=== PATIENT | male | born 1945 | race Caucasian/White ===

== ENCOUNTER 2017-06-25 09:43 | Emergency (ER) | payer MEDICARE, OTHER | END 2017-06-25 12:28 | disposition home or self-care (01) | LOC: E/R 09:43 | DX: R55 Syncope and collapse (principal); R53.1 Weakness; J44.9 Chronic obstructive pulmonary disease, unspecified; I10 Essential (primary) hypertension; G20 Parkinson's disease; F17.210 Nicotine dependence, cigarettes, uncomplicated; Z79.82 Long term (current) use of aspirin | CPT/HCPCS: 82962; 93005; 99283-25 ==

== ENCOUNTER 2017-06-27 00:18 | Emergency (ER) | payer MEDICARE, OTHER ==
[2017-06-27 01:40] LABS: ADD MAN DIFF? NO
[2017-06-27 01:41] LABS: WHITE BLOOD COUNT 5.1 10^3/ul (4.8-10.8)
[2017-06-27 01:41] LABS: BASOPHILS % 0.6 % (0.0-2.0); EOSINOPHILS # 0.2 10^3/ul (0.0-0.5); EOSINOPHILS % 4.7 % (0.0-7.0); HEMATOCRIT 39.1 % (42.0-52.0); HEMOGLOBIN 13.3 g/dl (14.0-18.0); LYMPHOCYTES # 2.2 10^3/ul (0.8-2.9); LYMPHOCYTES % 43.3 % (15.0-51.0); MEAN CORPUSCULAR HEMOGLOBIN 31.7 pg (29.0-33.0); MEAN CORPUSCULAR VOLUME 93.1 fl (82.0-101.0); MEAN PLATELET VOLUME 10.9 fl (7.4-10.4); MONOCYTE # 0.5 10^3/ul (0.3-0.9); MONOCYTES % 10.3 % (0.0-11.0); NEUTROPHIL # 2.1 10^3/ul (1.6-7.5); NEUTROPHILS % 40.7 % (39.0-77.0); PLATELET COUNT 183 10^3/UL (140-415); RED CELL DISTRIBUTION WIDTH 12.4 % (11.5-14.5)
[2017-06-27 01:59] LABS: ANION GAP 18 (8-16); BLOOD UREA NITROGEN 11 mg/dl (7-20); CARBON DIOXIDE 24 mmol/L (21-31); CHLORIDE 105 mmol/L (97-110); CREATININE 0.94 mg/dl (0.61-1.24); GLUCOSE 119 mg/dl (70-220); POTASSIUM 4.3 mmol/L (3.5-5.1); SODIUM 143 mmol/L (135-144)
[2017-06-27 02:27] LABS: TROPONIN-I < 0.012 ng/ml (0.00-0.12)
[2017-06-27 05:00] LABS: TROPONIN-I < 0.012 ng/ml (0.00-0.12)
== END 2017-06-27 08:46 | disposition home or self-care (01) ==
LOC: E/R 00:18
DX: R07.9 Chest pain, unspecified (principal); G20 Parkinson's disease; J44.9 Chronic obstructive pulmonary disease, unspecified; I10 Essential (primary) hypertension; Z79.82 Long term (current) use of aspirin; Z87.891 Personal history of nicotine dependence
CPT/HCPCS: 36415; 71045; 80048; 84484; 85025; 93005; 99285-25

== ENCOUNTER 2017-07-08 06:29 | Emergency (ER) | payer MEDICARE, OTHER ==
[2017-07-08] MEDS: MECLIZINE 12.5 MG TAB PO (10:41)
[2017-07-08] MEDS: ONDANSETRON 4 MG INJ IV (10:41)
[2017-07-08] MEDS: SOD CHLORIDE 0.9% 1,000 ML IV (10:44)
[2017-07-08 11:53] LABS: ADD MAN DIFF? NO
[2017-07-08 12:09] LABS: WHITE BLOOD COUNT 6.7 10^3/ul (4.8-10.8)
[2017-07-08 12:09] LABS: BASOPHIL # 0.1 10^3/ul (0.0-0.1); BASOPHILS % 0.9 % (0.0-2.0); EOSINOPHILS # 0.1 10^3/ul (0.0-0.5); HEMATOCRIT 43.4 % (42.0-52.0); HEMOGLOBIN 14.8 g/dl (14.0-18.0); LYMPHOCYTES # 2.1 10^3/ul (0.8-2.9); LYMPHOCYTES % 30.8 % (15.0-51.0); MEAN CORPUSCULAR HEMOGLOBIN 31.4 pg (29.0-33.0); MEAN CORPUSCULAR HGB CONC 34.1 g/dl (32.0-37.0); MEAN CORPUSCULAR VOLUME 92.1 fl (82.0-101.0); MEAN PLATELET VOLUME 12.2 fl (7.4-10.4); MONOCYTE # 0.6 10^3/ul (0.3-0.9); MONOCYTES % 8.9 % (0.0-11.0); NEUTROPHIL # 3.8 10^3/ul (1.6-7.5); NEUTROPHILS % 57.1 % (39.0-77.0); PLATELET COUNT 183 10^3/UL (140-415); RED BLOOD COUNT 4.71 10^6/ul (4.70-6.10); RED CELL DISTRIBUTION WIDTH 12.1 % (11.5-14.5)
[2017-07-08 12:24] LABS: ALANINE AMINOTRANSFERASE 34 IU/L (13-69); ALBUMIN 5.2 g/dl (3.3-4.9); ALBUMIN/GLOBULIN RATIO 1.73; ALKALINE PHOSPHATASE 59 IU/L (42-121); ANION GAP 20 (8-16); ASPARTATE AMINO TRANSFERASE 49 IU/L (15-46); BILIRUBIN,INDIRECT 0.7 mg/dl (0-1.1); BILIRUBIN,TOTAL 0.7 mg/dl (0.2-1.3); BLOOD UREA NITROGEN 10 mg/dl (7-20); CALCIUM 9.8 mg/dl (8.4-10.2); CARBON DIOXIDE 22 mmol/L (21-31); CHLORIDE 101 mmol/L (97-110); GLUCOSE 126 mg/dl (70-220); POTASSIUM 4.8 mmol/L (3.5-5.1); SODIUM 138 mmol/L (135-144); TOTAL PROTEIN 8.2 g/dl (6.1-8.1)
[2017-07-08 12:34] LABS: TROPONIN-I < 0.012 ng/ml (0.00-0.12)
[2017-07-08] MEDS: KETOROLAC 30 MG INJ IV (13:12)
== END 2017-07-08 14:01 | disposition home or self-care (01) ==
LOC: E/R 06:29
DX: R42 Dizziness and giddiness (principal); R40.2142 Coma scale, eyes open, spontaneous, at arrival to emergency department; R40.2362 Coma scale, best motor response, obeys commands, at arrival to emergency department; R40.2252 Coma scale, best verbal response, oriented, at arrival to emergency department; I10 Essential (primary) hypertension; G20 Parkinson's disease; Z79.82 Long term (current) use of aspirin
CPT/HCPCS: 70450; 80053; 84484; 85025; 93005; 96374; 96375; 99285-25

== ENCOUNTER 2017-07-13 09:42 | Emergency (ER) | payer MEDICARE, OTHER ==
[2017-07-13] MEDS: MECLIZINE 12.5 MG TAB PO (10:52)
[2017-07-13 10:57] LABS: ADD MAN DIFF? NO
[2017-07-13 11:05] LABS: BASOPHILS % 0.6 % (0.0-2.0); EOSINOPHILS # 0.4 10^3/ul (0.0-0.5); EOSINOPHILS % 6.1 % (0.0-7.0); HEMATOCRIT 42.3 % (42.0-52.0); HEMOGLOBIN 14.2 g/dl (14.0-18.0); LYMPHOCYTES # 2.6 10^3/ul (0.8-2.9); LYMPHOCYTES % 42.6 % (15.0-51.0); MEAN CORPUSCULAR HEMOGLOBIN 31.7 pg (29.0-33.0); MEAN CORPUSCULAR HGB CONC 33.6 g/dl (32.0-37.0); MEAN CORPUSCULAR VOLUME 94.4 fl (82.0-101.0); MEAN PLATELET VOLUME 10.9 fl (7.4-10.4); MONOCYTE # 0.6 10^3/ul (0.3-0.9); NEUTROPHIL # 2.6 10^3/ul (1.6-7.5); NEUTROPHILS % 41.5 % (39.0-77.0); PLATELET COUNT 175 10^3/UL (140-415); RED BLOOD COUNT 4.48 10^6/ul (4.70-6.10)
[2017-07-13 11:05] LABS: WHITE BLOOD COUNT 6.2 10^3/ul (4.8-10.8)
[2017-07-13 11:36] LABS: ANION GAP 19 (8-16); BLOOD UREA NITROGEN 10 mg/dl (7-20); CALCIUM 9.6 mg/dl (8.4-10.2); CARBON DIOXIDE 25 mmol/L (21-31); CHLORIDE 104 mmol/L (97-110); CREATININE 0.89 mg/dl (0.61-1.24); GLUCOSE 104 mg/dl (70-220); POTASSIUM 4.6 mmol/L (3.5-5.1); SODIUM 143 mmol/L (135-144)
[2017-07-13 11:50] LABS: TROPONIN-I < 0.012 ng/ml (0.00-0.12)
== END 2017-07-13 12:38 | disposition home or self-care (01) ==
LOC: E/R 09:42
DX: H81.10 Benign paroxysmal vertigo, unspecified ear (principal); I10 Essential (primary) hypertension; Z79.82 Long term (current) use of aspirin
CPT/HCPCS: 36415; 80048; 84484; 85025; 93005; 99284-25

== ENCOUNTER 2017-07-26 00:29 | Emergency (ER) | payer MEDICARE, OTHER ==
[2017-07-26 05:03] LABS: ADD MAN DIFF? NO
[2017-07-26 05:04] LABS: BASOPHIL # 0.1 10^3/ul (0.0-0.1); BASOPHILS % 0.8 % (0.0-2.0); EOSINOPHILS # 0.2 10^3/ul (0.0-0.5); EOSINOPHILS % 2.4 % (0.0-7.0); HEMATOCRIT 41.1 % (42.0-52.0); LYMPHOCYTES # 2.4 10^3/ul (0.8-2.9); LYMPHOCYTES % 35.9 % (15.0-51.0); MEAN CORPUSCULAR HGB CONC 34.1 g/dl (32.0-37.0); MEAN CORPUSCULAR VOLUME 93.8 fl (82.0-101.0); MEAN PLATELET VOLUME 11.2 fl (7.4-10.4); MONOCYTE # 0.5 10^3/ul (0.3-0.9); NEUTROPHIL # 3.5 10^3/ul (1.6-7.5); NEUTROPHILS % 53.6 % (39.0-77.0); PLATELET COUNT 180 10^3/UL (140-415); RED BLOOD COUNT 4.38 10^6/ul (4.70-6.10)
[2017-07-26 05:04] LABS: WHITE BLOOD COUNT 6.6 10^3/ul (4.8-10.8)
[2017-07-26 05:34] LABS: ANION GAP 17 (8-16); BLOOD UREA NITROGEN 11 mg/dl (7-20); CALCIUM 10.1 mg/dl (8.4-10.2); CARBON DIOXIDE 24 mmol/L (21-31); CHLORIDE 106 mmol/L (97-110); CREATININE 0.84 mg/dl (0.61-1.24); GLUCOSE 128 mg/dl (70-220); POTASSIUM 4.1 mmol/L (3.5-5.1); SODIUM 143 mmol/L (135-144)
[2017-07-26 05:46] LABS: B-TYPE NATRIURETIC PEPTIDE 92 PG/ML (0-125)
[2017-07-26 05:52] LABS: TROPONIN-I < 0.012 ng/ml (0.00-0.12)
== END 2017-07-26 08:06 | disposition home or self-care (01) ==
LOC: E/R 00:29
DX: I10 Essential (primary) hypertension (principal); J44.9 Chronic obstructive pulmonary disease, unspecified; G20 Parkinson's disease; I50.9 Heart failure, unspecified; Z79.82 Long term (current) use of aspirin
CPT/HCPCS: 36415; 71045; 80048; 83880; 84484; 85025; 93005; 99285-25

== ENCOUNTER 2017-08-28 17:43 | Emergency (ER) | payer MEDICARE, OTHER ==
[2017-08-28 22:21] LABS: ADD MAN DIFF? NO
[2017-08-28 22:24] LABS: WHITE BLOOD COUNT 7.7 10^3/ul (4.8-10.8)
[2017-08-28 22:24] LABS: BASOPHILS % 0.5 % (0.0-2.0); EOSINOPHILS # 0.2 10^3/ul (0.0-0.5); EOSINOPHILS % 2.6 % (0.0-7.0); HEMATOCRIT 43.5 % (42.0-52.0); HEMOGLOBIN 14.6 g/dl (14.0-18.0); LYMPHOCYTES # 2.5 10^3/ul (0.8-2.9); MEAN CORPUSCULAR HEMOGLOBIN 31.1 pg (29.0-33.0); MEAN CORPUSCULAR HGB CONC 33.6 g/dl (32.0-37.0); MEAN CORPUSCULAR VOLUME 92.6 fl (82.0-101.0); MEAN PLATELET VOLUME 10.9 fl (7.4-10.4); MONOCYTES % 12.5 % (0.0-11.0); NEUTROPHILS % 52.1 % (39.0-77.0); PLATELET COUNT 190 10^3/UL (140-415); RED CELL DISTRIBUTION WIDTH 11.9 % (11.5-14.5)
[2017-08-28 22:46] LABS: ALANINE AMINOTRANSFERASE 32 IU/L (13-69); ALBUMIN 4.5 g/dl (3.3-4.9); ALKALINE PHOSPHATASE 72 IU/L (42-121); ANION GAP 18 (8-16); ASPARTATE AMINO TRANSFERASE 36 IU/L (15-46); BILIRUBIN,INDIRECT 0.1 mg/dl (0-1.1); BILIRUBIN,TOTAL 0.1 mg/dl (0.2-1.3); BLOOD UREA NITROGEN 16 mg/dl (7-20); CALCIUM 9.8 mg/dl (8.4-10.2); CARBON DIOXIDE 27 mmol/L (21-31); CHLORIDE 101 mmol/L (97-110); CREATININE 1.06 mg/dl (0.61-1.24); GLUCOSE 156 mg/dl (70-220); LIPASE 66 U/L (23-300); POTASSIUM 4.1 mmol/L (3.5-5.1); SODIUM 142 mmol/L (135-144); TOTAL PROTEIN 7.5 g/dl (6.1-8.1)
[2017-08-28 22:54] LABS: B-TYPE NATRIURETIC PEPTIDE 25 PG/ML (0-125); TROPONIN-I 0.018 ng/ml (0.00-0.12)
== END 2017-08-29 00:23 | disposition home or self-care (01) ==
LOC: FTE 08-29 00:23
DX: J41.0 Simple chronic bronchitis (principal); I10 Essential (primary) hypertension
CPT/HCPCS: 36415; 80053; 83690; 83880; 84484; 85025; 93005; 99284-25

== ENCOUNTER 2017-09-05 21:21 | Emergency (ER) | payer MEDICARE, OTHER ==
[2017-09-06 02:46] LABS: ADD MAN DIFF? NO
[2017-09-06 02:48] LABS: WHITE BLOOD COUNT 7.3 10^3/ul (4.8-10.8)
[2017-09-06 02:48] LABS: BASOPHILS % 0.6 % (0.0-2.0); EOSINOPHILS # 0.2 10^3/ul (0.0-0.5); EOSINOPHILS % 2.8 % (0.0-7.0); HEMATOCRIT 42.4 % (42.0-52.0); HEMOGLOBIN 14.3 g/dl (14.0-18.0); LYMPHOCYTES # 2.1 10^3/ul (0.8-2.9); LYMPHOCYTES % 28.7 % (15.0-51.0); MEAN CORPUSCULAR HGB CONC 33.7 g/dl (32.0-37.0); MEAN CORPUSCULAR VOLUME 91.8 fl (82.0-101.0); MEAN PLATELET VOLUME 10.9 fl (7.4-10.4); MONOCYTE # 0.9 10^3/ul (0.3-0.9); MONOCYTES % 12.8 % (0.0-11.0); NEUTROPHILS % 54.8 % (39.0-77.0); PLATELET COUNT 189 10^3/UL (140-415); RED BLOOD COUNT 4.62 10^6/ul (4.70-6.10); RED CELL DISTRIBUTION WIDTH 12.1 % (11.5-14.5)
[2017-09-06 03:31] LABS: ANION GAP 21 (8-16); BLOOD UREA NITROGEN 13 mg/dl (7-20); CALCIUM 9.6 mg/dl (8.4-10.2); CARBON DIOXIDE 26 mmol/L (21-31); CHLORIDE 107 mmol/L (97-110); CREATININE 0.94 mg/dl (0.61-1.24); GLUCOSE 119 mg/dl (70-220); POTASSIUM 4.5 mmol/L (3.5-5.1); SODIUM 149 mmol/L (135-144)
[2017-09-06 03:46] LABS: TROPONIN-I < 0.012 ng/ml (0.00-0.12)
== END 2017-09-06 04:13 | disposition home or self-care (01) ==
LOC: FTE 21:21
DX: J20.9 Acute bronchitis, unspecified (principal); I10 Essential (primary) hypertension; Z79.82 Long term (current) use of aspirin; Z87.891 Personal history of nicotine dependence
CPT/HCPCS: 71045; 80048; 84484; 85025; 93005; 99285-25

== ENCOUNTER 2017-09-17 02:34 | Emergency (ER) | payer MEDICARE, OTHER | END 2017-09-17 03:26 | disposition home or self-care (01) | LOC: FTE 02:34 | DX: J30.9 Allergic rhinitis, unspecified (principal); I10 Essential (primary) hypertension; Z79.82 Long term (current) use of aspirin | CPT/HCPCS: 99283 ==

== ENCOUNTER 2017-10-07 01:50 | Emergency (ER) | payer MEDICARE, OTHER ==
[2017-10-07 02:59] LABS: ADD MAN DIFF? NO
[2017-10-07 03:02] LABS: WHITE BLOOD COUNT 5.7 10^3/ul (4.8-10.8)
[2017-10-07 03:02] LABS: BASOPHILS % 0.5 % (0.0-2.0); EOSINOPHILS # 0.2 10^3/ul (0.0-0.5); HEMATOCRIT 40.8 % (42.0-52.0); LYMPHOCYTES # 2.6 10^3/ul (0.8-2.9); LYMPHOCYTES % 44.6 % (15.0-51.0); MEAN CORPUSCULAR HEMOGLOBIN 31.3 pg (29.0-33.0); MEAN CORPUSCULAR HGB CONC 34.3 g/dl (32.0-37.0); MEAN CORPUSCULAR VOLUME 91.3 fl (82.0-101.0); MEAN PLATELET VOLUME 11.3 fl (7.4-10.4); MONOCYTE # 0.6 10^3/ul (0.3-0.9); MONOCYTES % 9.9 % (0.0-11.0); NEUTROPHIL # 2.4 10^3/ul (1.6-7.5); NEUTROPHILS % 41.8 % (39.0-77.0); PLATELET COUNT 177 10^3/UL (140-415); RED BLOOD COUNT 4.47 10^6/ul (4.70-6.10); RED CELL DISTRIBUTION WIDTH 12.5 % (11.5-14.5)
[2017-10-07 03:22] LABS: ANION GAP 17 (8-16); BLOOD UREA NITROGEN 10 mg/dl (7-20); CALCIUM 9.6 mg/dl (8.4-10.2); CARBON DIOXIDE 24 mmol/L (21-31); CHLORIDE 106 mmol/L (97-110); CREATININE 0.86 mg/dl (0.61-1.24); GLUCOSE 112 mg/dl (70-220); POTASSIUM 4.4 mmol/L (3.5-5.1); SODIUM 143 mmol/L (135-144)
[2017-10-07 03:34] LABS: B-TYPE NATRIURETIC PEPTIDE 47 PG/ML (0-125)
[2017-10-07 03:39] LABS: TROPONIN-I < 0.012 ng/ml (0.00-0.12)
== END 2017-10-07 04:48 | disposition home or self-care (01) ==
LOC: E/R 01:50
DX: R42 Dizziness and giddiness (principal); I10 Essential (primary) hypertension; I50.9 Heart failure, unspecified; F17.210 Nicotine dependence, cigarettes, uncomplicated; Z79.82 Long term (current) use of aspirin
CPT/HCPCS: 71045; 80048; 83880; 84484; 85025; 93005; 99285-25

== ENCOUNTER 2017-12-10 00:48 | Emergency (ER) | payer MEDICARE, OTHER ==
[2017-12-10 01:27] LABS: ADD MAN DIFF? NO
[2017-12-10 01:30] LABS: BASOPHIL # 0.1 10^3/ul (0.0-0.1); BASOPHILS % 0.7 % (0.0-2.0); EOSINOPHILS # 0.3 10^3/ul (0.0-0.5); EOSINOPHILS % 3.7 % (0.0-7.0); HEMATOCRIT 42.1 % (42.0-52.0); HEMOGLOBIN 14.1 g/dl (14.0-18.0); LYMPHOCYTES # 3.2 10^3/ul (0.8-2.9); LYMPHOCYTES % 47.3 % (15.0-51.0); MEAN CORPUSCULAR HEMOGLOBIN 30.9 pg (29.0-33.0); MEAN CORPUSCULAR HGB CONC 33.5 g/dl (32.0-37.0); MEAN CORPUSCULAR VOLUME 92.1 fl (82.0-101.0); MEAN PLATELET VOLUME 10.8 fl (7.4-10.4); MONOCYTE # 0.7 10^3/ul (0.3-0.9); MONOCYTES % 9.8 % (0.0-11.0); NEUTROPHIL # 2.6 10^3/ul (1.6-7.5); NEUTROPHILS % 38.2 % (39.0-77.0); PLATELET COUNT 195 10^3/UL (140-415); RED BLOOD COUNT 4.57 10^6/ul (4.70-6.10); RED CELL DISTRIBUTION WIDTH 12.4 % (11.5-14.5)
[2017-12-10 01:30] LABS: WHITE BLOOD COUNT 6.7 10^3/ul (4.8-10.8)
[2017-12-10 01:47] LABS: ANION GAP 15 (8-16); BLOOD UREA NITROGEN 11 mg/dl (7-20); CARBON DIOXIDE 24 mmol/L (21-31); CHLORIDE 106 mmol/L (97-110); CREATININE 0.88 mg/dl (0.61-1.24); GLUCOSE 115 mg/dl (70-220); POTASSIUM 4.3 mmol/L (3.5-5.1); SODIUM 141 mmol/L (135-144)
[2017-12-10] MEDS: LORAZEPAM 2 MG INJ IV (01:49)
[2017-12-10 02:18] LABS: TROPONIN-I < 0.012 ng/ml (0.000-0.120)
== END 2017-12-10 04:21 | disposition home or self-care (01) ==
LOC: E/R 00:48
DX: R07.9 Chest pain, unspecified (principal); I10 Essential (primary) hypertension; Z79.82 Long term (current) use of aspirin
CPT/HCPCS: 36415; 71045; 80048; 84484; 85025; 93005; 96374; 99285-25

== ENCOUNTER 2017-12-29 13:08 | Emergency (ER) | payer MEDICARE, OTHER ==
[2017-12-29 13:34] LABS: ADD MAN DIFF? NO
[2017-12-29] MEDS: LORAZEPAM 1 MG TAB PO (13:37)
[2017-12-29] MEDS: SOD CHLORIDE 0.9% 500 ML IV (13:37)
[2017-12-29 13:39] LABS: BASOPHILS % 0.6 % (0.0-2.0); EOSINOPHILS # 0.2 10^3/ul (0.0-0.5); EOSINOPHILS % 2.8 % (0.0-7.0); HEMATOCRIT 43.6 % (42.0-52.0); HEMOGLOBIN 14.8 g/dl (14.0-18.0); LYMPHOCYTES # 2.9 10^3/ul (0.8-2.9); LYMPHOCYTES % 40.9 % (15.0-51.0); MEAN CORPUSCULAR HEMOGLOBIN 31.2 pg (29.0-33.0); MEAN CORPUSCULAR HGB CONC 33.9 g/dl (32.0-37.0); MEAN CORPUSCULAR VOLUME 91.8 fl (82.0-101.0); MEAN PLATELET VOLUME 11.2 fl (7.4-10.4); MONOCYTE # 0.8 10^3/ul (0.3-0.9); MONOCYTES % 11.3 % (0.0-11.0); NEUTROPHIL # 3.1 10^3/ul (1.6-7.5); NEUTROPHILS % 44.1 % (39.0-77.0); PLATELET COUNT 187 10^3/UL (140-415); RED BLOOD COUNT 4.75 10^6/ul (4.70-6.10); RED CELL DISTRIBUTION WIDTH 12.1 % (11.5-14.5)
[2017-12-29 13:39] LABS: WHITE BLOOD COUNT 7.1 10^3/ul (4.8-10.8)
[2017-12-29 13:59] LABS: ALANINE AMINOTRANSFERASE 38 IU/L (13-69); ALBUMIN 4.8 g/dl (3.3-4.9); ALKALINE PHOSPHATASE 63 IU/L (42-121); ANION GAP 18 (8-16); ASPARTATE AMINO TRANSFERASE 41 IU/L (15-46); BILIRUBIN,INDIRECT 0.5 mg/dl (0-1.1); BILIRUBIN,TOTAL 0.5 mg/dl (0.2-1.3); BLOOD UREA NITROGEN 8 mg/dl (7-20); CALCIUM 9.8 mg/dl (8.4-10.2); CARBON DIOXIDE 22 mmol/L (21-31); CHLORIDE 99 mmol/L (97-110); CREATININE 0.87 mg/dl (0.61-1.24); GLUCOSE 129 mg/dl (70-220); LIPASE 117 U/L (23-300); POTASSIUM 4.3 mmol/L (3.5-5.1); SODIUM 135 mmol/L (135-144); TOTAL PROTEIN 7.8 g/dl (6.1-8.1)
[2017-12-29 14:15] LABS: TROPONIN-I < 0.010 ng/ml (0.000-0.120)
[2017-12-29] MEDS: FUROSEMIDE 40 MG INJ IV (14:47)
[2017-12-29] MEDS: ENALAPRILAT 1.25 MG INJ IV (15:25)
== END 2017-12-29 17:05 | disposition home or self-care (01) ==
LOC: E/R 13:08
DX: F41.9 Anxiety disorder, unspecified (principal); I50.21 Acute systolic (congestive) heart failure; I10 Essential (primary) hypertension; R40.2142 Coma scale, eyes open, spontaneous, at arrival to emergency department; R40.2252 Coma scale, best verbal response, oriented, at arrival to emergency department; R40.2362 Coma scale, best motor response, obeys commands, at arrival to emergency department; Z79.82 Long term (current) use of aspirin
CPT/HCPCS: 36415; 71045; 80053; 83690; 84484; 85025; 93005; 96374; 96375; 99285-25

== ENCOUNTER 2018-01-07 21:15 | Observation (INO) | payer MEDICARE, OTHER ==
[2018-01-07 21:35] LABS: ADD MAN DIFF? NO
[2018-01-07] MEDS: morphine 4 MG/ML VIAL IV (21:40)
[2018-01-07] MEDS: ONDANSETRON 4 MG INJ IV (21:40)
[2018-01-07 21:41] LABS: BASOPHILS % 0.6 % (0.0-2.0); EOSINOPHILS # 0.3 10^3/ul (0.0-0.5); EOSINOPHILS % 4.9 % (0.0-7.0); HEMATOCRIT 39.2 % (42.0-52.0); HEMOGLOBIN 13.5 g/dl (14.0-18.0); LYMPHOCYTES # 3.5 10^3/ul (0.8-2.9); LYMPHOCYTES % 51.4 % (15.0-51.0); MEAN CORPUSCULAR HEMOGLOBIN 32.1 pg (29.0-33.0); MEAN CORPUSCULAR HGB CONC 34.4 g/dl (32.0-37.0); MEAN CORPUSCULAR VOLUME 93.1 fl (82.0-101.0); MEAN PLATELET VOLUME 11.1 fl (7.4-10.4); MONOCYTE # 0.6 10^3/ul (0.3-0.9); MONOCYTES % 8.3 % (0.0-11.0); NEUTROPHIL # 2.3 10^3/ul (1.6-7.5); NEUTROPHILS % 34.7 % (39.0-77.0); PLATELET COUNT 162 10^3/UL (140-415); RED BLOOD COUNT 4.21 10^6/ul (4.70-6.10); RED CELL DISTRIBUTION WIDTH 12.2 % (11.5-14.5)
[2018-01-07 21:41] LABS: WHITE BLOOD COUNT 6.7 10^3/ul (4.8-10.8)
[2018-01-07 22:12] LABS: ANION GAP 17 (8-16); BLOOD UREA NITROGEN 10 mg/dl (7-20); CALCIUM 9.3 mg/dl (8.4-10.2); CARBON DIOXIDE 23 mmol/L (21-31); CHLORIDE 103 mmol/L (97-110); GLUCOSE 129 mg/dl (70-220); POTASSIUM 4.1 mmol/L (3.5-5.1); SODIUM 139 mmol/L (135-144)
[2018-01-07 22:23] LABS: TROPONIN-I < 0.010 ng/ml (0.000-0.120)
[2018-01-07] MEDS ORDERED: ONDANSETRON 4 MG INJ IV ×2 (23:00→23:30)
[2018-01-07] MEDS ORDERED: ACETAMINOPHEN 325 MG TAB PO ×2 (23:00→23:30)
[2018-01-07] MEDS ORDERED: HYDROCODONE/APAP (5/325) TAB PO (23:30)
[2018-01-07] MEDS ORDERED: ZOLPIDEM 5 MG TAB PO (23:30)
[2018-01-07] MEDS ORDERED: NACL 0.9% 3 ML SYG IV (23:30)
[2018-01-07] MEDS ORDERED: NITROGLYCERIN (SL) 0.4 MG TAB SL (23:30)
[2018-01-07] MEDS ORDERED: MECLIZINE 12.5 MG TAB PO (23:30)
[2018-01-07] MEDS ORDERED: LORAZEPAM 0.5 MG TAB PO (23:30)
[2018-01-08] MEDS ORDERED: hydrALAzine 20 MG INJ IV
[2018-01-08] MEDS: morphine 2 MG INJ IV (05:16)
[2018-01-08] MEDS: PANTOPRAZOLE (EC) 40 MG TAB PO (05:16)
[2018-01-08 07:44] LABS: ADD MAN DIFF? NO
[2018-01-08 07:51] LABS: WHITE BLOOD COUNT 5.1 10^3/ul (4.8-10.8)
[2018-01-08 07:51] LABS: BASOPHILS % 0.6 % (0.0-2.0); EOSINOPHILS # 0.1 10^3/ul (0.0-0.5); EOSINOPHILS % 2.7 % (0.0-7.0); HEMATOCRIT 41.6 % (42.0-52.0); HEMOGLOBIN 13.7 g/dl (14.0-18.0); LYMPHOCYTES # 1.4 10^3/ul (0.8-2.9); LYMPHOCYTES % 27.4 % (15.0-51.0); MEAN CORPUSCULAR HEMOGLOBIN 30.6 pg (29.0-33.0); MEAN CORPUSCULAR HGB CONC 32.9 g/dl (32.0-37.0); MEAN CORPUSCULAR VOLUME 93.1 fl (82.0-101.0); MEAN PLATELET VOLUME 10.9 fl (7.4-10.4); MONOCYTE # 0.5 10^3/ul (0.3-0.9); NEUTROPHIL # 3.1 10^3/ul (1.6-7.5); NEUTROPHILS % 59.9 % (39.0-77.0); PLATELET COUNT 149 10^3/UL (140-415); RED BLOOD COUNT 4.47 10^6/ul (4.70-6.10); RED CELL DISTRIBUTION WIDTH 12.2 % (11.5-14.5)
[2018-01-08 08:42] LABS: HEMOGLOBIN A1C 6.1 % (0-5.9)
[2018-01-08 08:44] LABS: CREATINE KINASE 288 IU/L (23-200)
[2018-01-08 08:46] LABS: CK INDEX 1.6; CK-MB 4.49 ng/ml (0.0-2.4); TROPONIN-I < 0.010 ng/ml (0.000-0.120)
[2018-01-08] MEDS: CYANOCOBALAMIN 100 MCG TAB PO (08:51)
[2018-01-08] MEDS: ASPIRIN 81 MG TAB PO (08:51)
[2018-01-08] MEDS: METOPROLOL 25 MG TAB PO ×2 (08:51→20:52)
[2018-01-08] MEDS: OLANZAPINE 5 MG TAB PO ×2 (08:51→20:59)
[2018-01-08] MEDS: PRAMIPEXOLE 0.25 MG TAB PO ×3 (08:52→20:59)
[2018-01-08] MEDS: MULTIVITAMINS THERAPEUTIC TAB PO (08:52)
[2018-01-08] MEDS: DIVALPROEX (ER) 500 MG TAB PO ×2 (08:53→22:09)
[2018-01-08] MEDS: LOSARTAN 50 MG TAB PO (08:53)
[2018-01-08] MEDS: BENZONATATE 100 MG CAP PO (08:53)
[2018-01-08] MEDS: AMLODIPINE 5 MG TAB PO (08:53)
[2018-01-08] MEDS: FLUTICASONE 0.05% 16 GM NAS SPRAY NASAL ×2 (08:54→20:50)
[2018-01-08] MEDS: ISOSORBIDE DINITRATE 10 MG TAB PO ×3 (08:54→20:59)
[2018-01-08] MEDS ORDERED: ASPIRIN 81 MG TAB PO (09:00)
[2018-01-08] MEDS: CARBIDOPA/LEVODOPA (25/100) TAB PO ×3 (09:01→20:50)
[2018-01-08] MEDS: ENOXAPARIN 40 MG/0.4 ML SYG SC (09:14)
[2018-01-08 10:12] LABS: ALANINE AMINOTRANSFERASE 27 IU/L (13-69); ALBUMIN 4.3 g/dl (3.3-4.9); ALBUMIN/GLOBULIN RATIO 1.65; ALKALINE PHOSPHATASE 50 IU/L (42-121); ANION GAP 18 (8-16); ASPARTATE AMINO TRANSFERASE 70 IU/L (15-46); BILIRUBIN,INDIRECT 0.1 mg/dl (0-1.1); BILIRUBIN,TOTAL 0.1 mg/dl (0.2-1.3); BLOOD UREA NITROGEN 8 mg/dl (7-20); CALCIUM 9.7 mg/dl (8.4-10.2); CARBON DIOXIDE 20 mmol/L (21-31); CHLORIDE 107 mmol/L (97-110); CHOL/HDL RATIO 3.1 RATIO; CHOLESTEROL 115 mg/dl (100-200); CREATININE 0.92 mg/dl (0.61-1.24); GLUCOSE 114 mg/dl (70-220); HDL CHOLESTEROL 37 mg/dl (31-75); LDL CHOLESTEROL,CALCULATED 53 mg/dl; POTASSIUM 4.5 mmol/L (3.5-5.1); SODIUM 140 mmol/L (135-144); TOTAL PROTEIN 6.9 g/dl (6.1-8.1); TRIGLYCERIDES 126 mg/dl (0-149)
[2018-01-08 11:54] LABS: CREATINE KINASE 250 IU/L (23-200)
[2018-01-08 12:12] LABS: CK INDEX 1.6; CK-MB 3.94 ng/ml (0.0-2.4); TROPONIN-I < 0.010 ng/ml (0.000-0.120)
[2018-01-08] MEDS ORDERED: morphine LIQ (10 MG/5 ML) CUP PO (17:30)
[2018-01-08] MEDS: ATORVASTATIN 20 MG TAB PO (20:50)
[2018-01-08] MEDS: MIRTAZAPINE 15 MG TAB PO (20:51)
[2018-01-09] MEDS: PANTOPRAZOLE (EC) 40 MG TAB PO (05:43)
[2018-01-09] MEDS: ENOXAPARIN 40 MG/0.4 ML SYG SC (08:15)
[2018-01-09] MEDS: FLUTICASONE 0.05% 16 GM NAS SPRAY NASAL (08:15)
[2018-01-09] MEDS: MULTIVITAMINS THERAPEUTIC TAB PO (08:15)
[2018-01-09] MEDS: PRAMIPEXOLE 0.25 MG TAB PO ×2 (08:16→13:26)
[2018-01-09] MEDS: METOPROLOL 25 MG TAB PO (08:17)
[2018-01-09] MEDS: DIVALPROEX (ER) 500 MG TAB PO (08:17)
[2018-01-09] MEDS: LOSARTAN 50 MG TAB PO (08:18)
[2018-01-09] MEDS: AMLODIPINE 5 MG TAB PO (08:18)
[2018-01-09] MEDS: CARBIDOPA/LEVODOPA (25/100) TAB PO ×2 (08:19→13:26)
[2018-01-09] MEDS: OLANZAPINE 5 MG TAB PO (08:19)
[2018-01-09] MEDS: ISOSORBIDE DINITRATE 10 MG TAB PO ×2 (08:20→13:26)
[2018-01-09] MEDS: ASPIRIN 81 MG TAB PO (08:20)
[2018-01-09] MEDS: CYANOCOBALAMIN 100 MCG TAB PO (08:22)
== END 2018-01-09 18:18 | disposition home or self-care (01) ==
LOC: E/R 21:15 → MS4 22:42
DX: R07.9 Chest pain, unspecified (principal); I25.10 Atherosclerotic heart disease of native coronary artery without angina pectoris; G20 Parkinson's disease; J44.9 Chronic obstructive pulmonary disease, unspecified; M19.90 Unspecified osteoarthritis, unspecified site; I11.0 Hypertensive heart disease with heart failure; I50.30 Unspecified diastolic (congestive) heart failure; F31.9 Bipolar disorder, unspecified; E78.5 Hyperlipidemia, unspecified; D64.9 Anemia, unspecified; F32.9 Major depressive disorder, single episode, unspecified; F17.200 Nicotine dependence, unspecified, uncomplicated
CPT/HCPCS: 36415; 71045; 80048; 80053; 80061; 82550; 82553; 83036; 84443; 84484; 85025; 93005; 93306; 96374; 96375; 99285-25; G0378

== ENCOUNTER 2018-02-09 10:39 | Emergency (ER) | payer MEDICARE, OTHER ==
[2018-02-09] MEDS: SOD CHLORIDE 0.9% 500 ML IV (12:19)
[2018-02-09] MEDS: LIDOCAINE/MYLANTA 40 ML BTL PO (12:19)
[2018-02-09] MEDS: BELLADONNA/PHENOBARBITAL TAB PO (12:19)
[2018-02-09] MEDS: FAMOTIDINE 20 MG INJ IV (12:19)
[2018-02-09 12:36] LABS: ADD MAN DIFF? NO
[2018-02-09 12:38] LABS: WHITE BLOOD COUNT 6.4 10^3/ul (4.8-10.8)
[2018-02-09 12:38] LABS: BASOPHILS % 0.3 % (0.0-2.0); EOSINOPHILS # 0.2 10^3/ul (0.0-0.5); EOSINOPHILS % 2.8 % (0.0-7.0); HEMATOCRIT 38.8 % (42.0-52.0); HEMOGLOBIN 13.3 g/dl (14.0-18.0); LYMPHOCYTES # 2.6 10^3/ul (0.8-2.9); LYMPHOCYTES % 41.3 % (15.0-51.0); MEAN CORPUSCULAR HEMOGLOBIN 31.5 pg (29.0-33.0); MEAN CORPUSCULAR HGB CONC 34.3 g/dl (32.0-37.0); MEAN CORPUSCULAR VOLUME 91.9 fl (82.0-101.0); MEAN PLATELET VOLUME 11.1 fl (7.4-10.4); MONOCYTE # 0.7 10^3/ul (0.3-0.9); MONOCYTES % 10.4 % (0.0-11.0); NEUTROPHIL # 2.9 10^3/ul (1.6-7.5); PLATELET COUNT 202 10^3/UL (140-415); RED BLOOD COUNT 4.22 10^6/ul (4.70-6.10); RED CELL DISTRIBUTION WIDTH 12.5 % (11.5-14.5)
[2018-02-09 12:47] LABS: ALANINE AMINOTRANSFERASE 19 IU/L (13-69); ALBUMIN 4.3 g/dl (3.3-4.9); ALBUMIN/GLOBULIN RATIO 1.53; ALKALINE PHOSPHATASE 54 IU/L (42-121); ANION GAP 17 (8-16); ASPARTATE AMINO TRANSFERASE 41 IU/L (15-46); BILIRUBIN,INDIRECT 0.2 mg/dl (0-1.1); BILIRUBIN,TOTAL 0.2 mg/dl (0.2-1.3); BLOOD UREA NITROGEN 11 mg/dl (7-20); CALCIUM 9.7 mg/dl (8.4-10.2); CARBON DIOXIDE 24 mmol/L (21-31); CHLORIDE 103 mmol/L (97-110); GLUCOSE 115 mg/dl (70-220); LIPASE 105 U/L (23-300); POTASSIUM 4.2 mmol/L (3.5-5.1); SODIUM 140 mmol/L (135-144); TOTAL PROTEIN 7.1 g/dl (6.1-8.1)
[2018-02-09 12:59] LABS: B-TYPE NATRIURETIC PEPTIDE 79 PG/ML (0-125); INR 0.81; PROTIME 11.2 Sec (11.9-14.9); PT RATIO 0.9; TROPONIN-I < 0.010 ng/ml (0.000-0.120)
== END 2018-02-09 14:49 | disposition home or self-care (01) ==
LOC: E/R 10:39
DX: D64.9 Anemia, unspecified (principal); R10.13 Epigastric pain; I10 Essential (primary) hypertension; J44.9 Chronic obstructive pulmonary disease, unspecified; G20 Parkinson's disease; Z79.82 Long term (current) use of aspirin
CPT/HCPCS: 36415; 71045; 80053; 83690; 83880; 84484; 85025; 85610; 93005; 96374; 99285-25

== ENCOUNTER 2018-03-05 10:43 | Observation (INO) | payer MEDICARE, OTHER ==
[2018-03-05] MEDS: ASPIRIN (EC) 325 MG TAB PO (11:34)
[2018-03-05 11:35] LABS: ADD MAN DIFF? NO
[2018-03-05 11:36] LABS: WHITE BLOOD COUNT 5.7 10^3/ul (4.8-10.8)
[2018-03-05 11:37] LABS: BASOPHILS % 0.5 % (0.0-2.0); EOSINOPHILS # 0.1 10^3/ul (0.0-0.5); EOSINOPHILS % 2.5 % (0.0-7.0); HEMATOCRIT 40.5 % (42.0-52.0); HEMOGLOBIN 13.4 g/dl (14.0-18.0); LYMPHOCYTES # 1.8 10^3/ul (0.8-2.9); LYMPHOCYTES % 31.3 % (15.0-51.0); MEAN CORPUSCULAR HEMOGLOBIN 31.2 pg (29.0-33.0); MEAN CORPUSCULAR HGB CONC 33.1 g/dl (32.0-37.0); MEAN CORPUSCULAR VOLUME 94.2 fl (82.0-101.0); MEAN PLATELET VOLUME 11.1 fl (7.4-10.4); MONOCYTE # 0.6 10^3/ul (0.3-0.9); NEUTROPHIL # 3.1 10^3/ul (1.6-7.5); NEUTROPHILS % 54.3 % (39.0-77.0); PLATELET COUNT 175 10^3/UL (140-415); RED CELL DISTRIBUTION WIDTH 12.9 % (11.5-14.5)
[2018-03-05 12:49] LABS: ALANINE AMINOTRANSFERASE 32 IU/L (13-69); ALBUMIN 3.9 g/dl (3.3-4.9); ALKALINE PHOSPHATASE 54 IU/L (42-121); ANION GAP 14 (8-16); ASPARTATE AMINO TRANSFERASE 35 IU/L (15-46); BILIRUBIN,INDIRECT 0.3 mg/dl (0-1.1); BILIRUBIN,TOTAL 0.3 mg/dl (0.2-1.3); BLOOD UREA NITROGEN 9 mg/dl (7-20); CALCIUM 9.4 mg/dl (8.4-10.2); CARBON DIOXIDE 25 mmol/L (21-31); CHLORIDE 106 mmol/L (97-110); CREATININE 0.97 mg/dl (0.61-1.24); GLUCOSE 121 mg/dl (70-220); POTASSIUM 4.1 mmol/L (3.5-5.1); SODIUM 141 mmol/L (135-144); TOTAL PROTEIN 6.9 g/dl (6.1-8.1)
[2018-03-05 13:00] LABS: TROPONIN-I < 0.012 ng/ml (0.000-0.120)
[2018-03-05] MEDS ORDERED: ZOLPIDEM 5 MG TAB PO (18:00)
[2018-03-05] MEDS ORDERED: ACETAMINOPHEN 500 MG TAB PO (18:00)
[2018-03-05] MEDS ORDERED: LORAZEPAM 0.5 MG TAB PO (18:00)
[2018-03-05] MEDS ORDERED: morphine 2 MG INJ IV (18:00)
[2018-03-05] MEDS ORDERED: HYDROCODONE/APAP (5/325) TAB PO (18:00)
[2018-03-05] MEDS ORDERED: MAGNESIUM HYDROXIDE 30ML CUP PO (18:00)
[2018-03-05] MEDS ORDERED: DOCUSATE SODIUM 100 MG CAP PO (18:00)
[2018-03-05] MEDS ORDERED: MECLIZINE 25 MG TAB PO (18:00)
[2018-03-05] MEDS ORDERED: NACL 0.9% 3 ML SYG IV (18:00)
[2018-03-05] MEDS ORDERED: ACETAMINOPHEN 325 MG TAB PO (18:00)
[2018-03-05 18:15] LABS: CREATINE KINASE 488 IU/L (23-200)
[2018-03-05 18:29] LABS: CK INDEX 1.3; CK-MB 6.31 ng/ml (0.0-2.4); TROPONIN-I < 0.012 ng/ml (0.000-0.120)
[2018-03-05] MEDS: ISOSORBIDE DINITRATE 5 MG TAB PO (20:45)
[2018-03-05] MEDS: CARBIDOPA/LEVODOPA (25/100) TAB PO (20:45)
[2018-03-05] MEDS: DIVALPROEX (ER) 500 MG TAB PO (20:46)
[2018-03-05] MEDS: METOPROLOL 25 MG TAB PO (20:47)
[2018-03-05] MEDS: PRAMIPEXOLE 0.25 MG TAB PO (20:47)
[2018-03-05] MEDS: ATORVASTATIN 20 MG TAB PO (20:47)
[2018-03-05] MEDS: MIRTAZAPINE 15 MG TAB PO (20:49)
[2018-03-05] MEDS: OLANZAPINE 5 MG TAB PO (20:49)
[2018-03-06 01:13] LABS: CREATINE KINASE 427 IU/L (23-200)
[2018-03-06 01:25] LABS: TROPONIN-I < 0.012 ng/ml (0.000-0.120)
[2018-03-06] MEDS: PANTOPRAZOLE (EC) 40 MG TAB PO ×2 (06:00→08:45)
[2018-03-06 06:52] LABS: ADD MAN DIFF? NO
[2018-03-06 07:00] LABS: RETICULOCYTE RBC 4.36
[2018-03-06 07:00] LABS: RETICULOCYTE COUNT % 2.3 % (0.5-1.5)
[2018-03-06 07:01] LABS: BASOPHILS % 0.3 % (0.0-2.0); EOSINOPHILS # 0.1 10^3/ul (0.0-0.5); EOSINOPHILS % 1.6 % (0.0-7.0); HEMATOCRIT 41.6 % (42.0-52.0); HEMOGLOBIN 13.8 g/dl (14.0-18.0); LYMPHOCYTES % 29.1 % (15.0-51.0); MEAN CORPUSCULAR HEMOGLOBIN 31.4 pg (29.0-33.0); MEAN CORPUSCULAR HGB CONC 33.2 g/dl (32.0-37.0); MEAN CORPUSCULAR VOLUME 94.5 fl (82.0-101.0); MEAN PLATELET VOLUME 11.2 fl (7.4-10.4); MONOCYTE # 0.6 10^3/ul (0.3-0.9); MONOCYTES % 8.9 % (0.0-11.0); NEUTROPHIL # 4.2 10^3/ul (1.6-7.5); NEUTROPHILS % 59.8 % (39.0-77.0); PLATELET COUNT 181 10^3/UL (140-415); RED CELL DISTRIBUTION WIDTH 13.1 % (11.5-14.5)
[2018-03-06 07:37] LABS: CREATINE KINASE 334 IU/L (23-200)
[2018-03-06 07:42] LABS: IRON 101 ug/dl (35-150)
[2018-03-06 07:44] LABS: ALANINE AMINOTRANSFERASE 20 IU/L (13-69); ALBUMIN 3.8 g/dl (3.3-4.9); ALBUMIN/GLOBULIN RATIO 1.35; ALKALINE PHOSPHATASE 52 IU/L (42-121); ANION GAP 14 (8-16); ASPARTATE AMINO TRANSFERASE 29 IU/L (15-46); BILIRUBIN,INDIRECT 0.6 mg/dl (0-1.1); BILIRUBIN,TOTAL 0.6 mg/dl (0.2-1.3); BLOOD UREA NITROGEN 10 mg/dl (7-20); CALCIUM 9.3 mg/dl (8.4-10.2); CARBON DIOXIDE 25 mmol/L (21-31); CHLORIDE 105 mmol/L (97-110); CHOL/HDL RATIO 3.7 RATIO; CHOLESTEROL 137 mg/dl (100-200); CREATININE 0.86 mg/dl (0.61-1.24); GLUCOSE 112 mg/dl (70-220); HDL CHOLESTEROL 37 mg/dl (31-75); LDL CHOLESTEROL,CALCULATED 68 mg/dl; POTASSIUM 4.2 mmol/L (3.5-5.1); SODIUM 140 mmol/L (135-144); TOTAL PROTEIN 6.6 g/dl (6.1-8.1); TRIGLYCERIDES 162 mg/dl (0-149)
[2018-03-06 07:48] LABS: CK INDEX 0.9; CK-MB 2.94 ng/ml (0.0-2.4); TROPONIN-I < 0.012 ng/ml (0.000-0.120)
[2018-03-06 07:52] LABS: % IRON SATURATION 31 % SAT (22-52); TOTAL IRON BINDING CAPACITY 330 ug/dl (241-421)
[2018-03-06 07:55] LABS: FREE T4 (FREE THYROXINE) 0.83 ng/dl (0.78-2.44)
[2018-03-06 08:02] LABS: HEMOGLOBIN A1C 6.3 % (0-5.9)
[2018-03-06] MEDS: CYANOCOBALAMIN 100 MCG TAB PO (08:45)
[2018-03-06] MEDS: MULTIVITAMINS THERAPEUTIC TAB PO (08:45)
[2018-03-06] MEDS: ASPIRIN 81 MG TAB PO (08:45)
[2018-03-06] MEDS: OLANZAPINE 5 MG TAB PO ×2 (08:45→20:46)
[2018-03-06] MEDS: CARBIDOPA/LEVODOPA (25/100) TAB PO ×3 (08:45→20:46)
[2018-03-06] MEDS: PRAMIPEXOLE 0.25 MG TAB PO ×3 (08:45→20:46)
[2018-03-06] MEDS: METOPROLOL 25 MG TAB PO ×2 (08:46→20:44)
[2018-03-06] MEDS: DIVALPROEX (ER) 500 MG TAB PO ×2 (08:46→20:45)
[2018-03-06] MEDS: LOSARTAN 50 MG TAB PO (08:46)
[2018-03-06] MEDS: AMLODIPINE 5 MG TAB PO (08:47)
[2018-03-06] MEDS: ISOSORBIDE DINITRATE 5 MG TAB PO ×3 (08:47→20:44)
[2018-03-06] MEDS: ENOXAPARIN 40 MG/0.4 ML SYG SC (08:57)
[2018-03-06] MEDS: ATORVASTATIN 20 MG TAB PO (20:44)
[2018-03-06] MEDS: MIRTAZAPINE 15 MG TAB PO (20:45)
[2018-03-07] MEDS: OLANZAPINE 5 MG TAB PO (08:45)
[2018-03-07] MEDS: ASPIRIN 81 MG TAB PO (08:45)
[2018-03-07] MEDS: PRAMIPEXOLE 0.25 MG TAB PO ×2 (08:45→13:05)
[2018-03-07] MEDS: CARBIDOPA/LEVODOPA (25/100) TAB PO ×2 (08:45→13:05)
[2018-03-07] MEDS: METOPROLOL 25 MG TAB PO (08:46)
[2018-03-07] MEDS: DIVALPROEX (ER) 500 MG TAB PO (08:46)
[2018-03-07] MEDS: ISOSORBIDE DINITRATE 5 MG TAB PO ×2 (08:46→13:05)
[2018-03-07] MEDS: MULTIVITAMINS THERAPEUTIC TAB PO (08:46)
[2018-03-07] MEDS: CYANOCOBALAMIN 100 MCG TAB PO (08:47)
[2018-03-07] MEDS: LOSARTAN 50 MG TAB PO (08:47)
[2018-03-07] MEDS: ENOXAPARIN 40 MG/0.4 ML SYG SC (09:18)
[2018-03-07] MEDS: AMLODIPINE 5 MG TAB PO (09:39)
== END 2018-03-07 13:30 | disposition home or self-care (01) ==
LOC: E/R 10:43 → TEL 13:17
DX: R07.9 Chest pain, unspecified (principal); J44.9 Chronic obstructive pulmonary disease, unspecified; I25.10 Atherosclerotic heart disease of native coronary artery without angina pectoris; F32.9 Major depressive disorder, single episode, unspecified; G20 Parkinson's disease; I11.0 Hypertensive heart disease with heart failure; I50.9 Heart failure, unspecified; E78.5 Hyperlipidemia, unspecified; F31.9 Bipolar disorder, unspecified; D64.9 Anemia, unspecified; R73.03 Prediabetes; R10.9 Unspecified abdominal pain; M19.90 Unspecified osteoarthritis, unspecified site; N40.0 Benign prostatic hyperplasia without lower urinary tract symptoms; Z79.82 Long term (current) use of aspirin
CPT/HCPCS: 36415; 71045; 76700; 80053; 80061; 82550; 82553; 82607; 82746; 83036; 83540; 84439; 84443; 84484; 85025; 85045; 87081; 93005; 99285-25; G0378

== ENCOUNTER 2018-03-16 18:15 | Emergency (ER) | payer MEDICARE, OTHER | END 2018-03-16 20:55 | disposition home or self-care (01) | LOC: E/R 18:15 | DX: S80.212A Abrasion, left knee, initial encounter (principal); G20 Parkinson's disease; I11.0 Hypertensive heart disease with heart failure; I50.9 Heart failure, unspecified; J44.9 Chronic obstructive pulmonary disease, unspecified; W18.30XA Fall on same level, unspecified, initial encounter; Y92.129 Unspecified place in nursing home as the place of occurrence of the external cause; Z87.891 Personal history of nicotine dependence; Z79.82 Long term (current) use of aspirin | CPT/HCPCS: 73562; 99283-25 ==

== ENCOUNTER 2018-03-24 11:06 | Emergency (ER) | payer MEDICARE, OTHER ==
[2018-03-24] MEDS ORDERED: predniSONE 20 MG TAB PO (12:00)
[2018-03-24] MEDS: IBUPROFEN 600 MG TAB PO (12:05)
== END 2018-03-24 13:30 | disposition left against medical advice (07) ==
LOC: FTE 11:06
DX: S80.212A Abrasion, left knee, initial encounter (principal); I10 Essential (primary) hypertension; J44.9 Chronic obstructive pulmonary disease, unspecified; G20 Parkinson's disease; W18.39XA Other fall on same level, initial encounter; Y92.9 Unspecified place or not applicable; Z79.82 Long term (current) use of aspirin; Z87.891 Personal history of nicotine dependence
CPT/HCPCS: 99282

== ENCOUNTER 2018-04-04 21:19 | Emergency (ER) | payer MEDICARE, OTHER ==
[2018-04-04 22:16] LABS: ADD MAN DIFF? NO
[2018-04-04 22:19] LABS: WHITE BLOOD COUNT 5.8 10^3/ul (4.8-10.8)
[2018-04-04 22:19] LABS: BASOPHILS % 0.3 % (0.0-2.0); EOSINOPHILS # 0.1 10^3/ul (0.0-0.5); EOSINOPHILS % 2.4 % (0.0-7.0); HEMATOCRIT 41.3 % (42.0-52.0); HEMOGLOBIN 13.6 g/dl (14.0-18.0); LYMPHOCYTES # 2.8 10^3/ul (0.8-2.9); LYMPHOCYTES % 48.3 % (15.0-51.0); MEAN CORPUSCULAR HEMOGLOBIN 30.6 pg (29.0-33.0); MEAN CORPUSCULAR HGB CONC 32.9 g/dl (32.0-37.0); MEAN PLATELET VOLUME 10.8 fl (7.4-10.4); MONOCYTE # 0.6 10^3/ul (0.3-0.9); MONOCYTES % 9.4 % (0.0-11.0); NEUTROPHIL # 2.3 10^3/ul (1.6-7.5); NEUTROPHILS % 39.4 % (39.0-77.0); PLATELET COUNT 169 10^3/UL (140-415); RED BLOOD COUNT 4.44 10^6/ul (4.70-6.10); RED CELL DISTRIBUTION WIDTH 12.8 % (11.5-14.5)
[2018-04-04 22:44] LABS: ALANINE AMINOTRANSFERASE 21 IU/L (13-69); ALBUMIN 3.8 g/dl (3.3-4.9); ALBUMIN/GLOBULIN RATIO 1.26; ALKALINE PHOSPHATASE 55 IU/L (42-121); ANION GAP 14 (8-16); ASPARTATE AMINO TRANSFERASE 32 IU/L (15-46); BILIRUBIN,INDIRECT 0.4 mg/dl (0-1.1); BILIRUBIN,TOTAL 0.4 mg/dl (0.2-1.3); BLOOD UREA NITROGEN 12 mg/dl (7-20); CARBON DIOXIDE 27 mmol/L (21-31); CHLORIDE 104 mmol/L (97-110); CREATININE 1.01 mg/dl (0.61-1.24); GLUCOSE 109 mg/dl (70-220); LIPASE 66 U/L (23-300); POTASSIUM 3.9 mmol/L (3.5-5.1); SODIUM 141 mmol/L (135-144); TOTAL PROTEIN 6.8 g/dl (6.1-8.1)
[2018-04-04 22:55] LABS: TROPONIN-I < 0.012 ng/ml (0.000-0.120)
[2018-04-05 02:53] LABS: TROPONIN-I < 0.012 ng/ml (0.000-0.120)
== END 2018-04-05 05:25 | disposition short-term general hospital (02) ==
LOC: E/R 21:19
DX: R07.2 Precordial pain (principal); D64.9 Anemia, unspecified; G20 Parkinson's disease; J44.9 Chronic obstructive pulmonary disease, unspecified; F17.210 Nicotine dependence, cigarettes, uncomplicated; I10 Essential (primary) hypertension; Z79.82 Long term (current) use of aspirin
CPT/HCPCS: 36415; 71045; 80053; 83690; 84484; 85025; 93005; 99285-25

== ENCOUNTER 2018-04-17 03:58 | Emergency (ER) | payer MEDICARE, OTHER ==
[2018-04-17] MEDS: morphine 4 MG/ML VIAL IV (04:26)
[2018-04-17] MEDS: ONDANSETRON 4 MG INJ IV (04:26)
[2018-04-17 04:36] LABS: ADD MAN DIFF? NO
[2018-04-17 04:49] LABS: WHITE BLOOD COUNT 5.9 10^3/ul (4.8-10.8)
[2018-04-17 04:49] LABS: BASOPHILS % 0.5 % (0.0-2.0); EOSINOPHILS # 0.1 10^3/ul (0.0-0.5); EOSINOPHILS % 2.2 % (0.0-7.0); HEMATOCRIT 41.9 % (42.0-52.0); LYMPHOCYTES # 2.1 10^3/ul (0.8-2.9); LYMPHOCYTES % 36.4 % (15.0-51.0); MEAN CORPUSCULAR HEMOGLOBIN 31.4 pg (29.0-33.0); MEAN CORPUSCULAR HGB CONC 33.4 g/dl (32.0-37.0); MEAN CORPUSCULAR VOLUME 93.9 fl (82.0-101.0); MEAN PLATELET VOLUME 11.3 fl (7.4-10.4); MONOCYTE # 0.5 10^3/ul (0.3-0.9); MONOCYTES % 9.1 % (0.0-11.0); NEUTROPHILS % 51.3 % (39.0-77.0); PLATELET COUNT 156 10^3/UL (140-415); RED BLOOD COUNT 4.46 10^6/ul (4.70-6.10); RED CELL DISTRIBUTION WIDTH 12.7 % (11.5-14.5)
[2018-04-17 04:58] LABS: ANION GAP 10 (5-13); BLOOD UREA NITROGEN 13 mg/dl (7-20); CALCIUM 9.7 mg/dl (8.4-10.2); CARBON DIOXIDE 25 mmol/L (21-31); CHLORIDE 106 mmol/L (97-110); CREATININE 0.99 mg/dl (0.61-1.24); Estimated GFR > 60 mL/min (>60); GLUCOSE 127 mg/dl (70-220); POTASSIUM 4.4 mmol/L (3.5-5.1); SODIUM 141 mmol/L (135-144)
[2018-04-17 05:10] LABS: TROPONIN-I < 0.012 ng/ml (0.000-0.120)
== END 2018-04-17 06:20 | disposition home or self-care (01) ==
LOC: E/R 06:20
DX: M54.5 Low back pain (principal); I10 Essential (primary) hypertension; G20 Parkinson's disease; R11.0 Nausea; Z79.82 Long term (current) use of aspirin
CPT/HCPCS: 36415; 71045; 80048; 84484; 85025; 93005; 96374; 96375; 99285-25

== ENCOUNTER 2018-04-20 19:24 | Emergency (ER) | payer MEDICARE, OTHER ==
[2018-04-20 19:45] LABS: ADD MAN DIFF? NO
[2018-04-20 19:47] LABS: BASOPHILS % 0.4 % (0.0-2.0); EOSINOPHILS # 0.2 10^3/ul (0.0-0.5); EOSINOPHILS % 2.4 % (0.0-7.0); HEMATOCRIT 39.4 % (42.0-52.0); HEMOGLOBIN 13.2 g/dl (14.0-18.0); LYMPHOCYTES # 2.8 10^3/ul (0.8-2.9); LYMPHOCYTES % 42.1 % (15.0-51.0); MEAN CORPUSCULAR HEMOGLOBIN 31.2 pg (29.0-33.0); MEAN CORPUSCULAR HGB CONC 33.5 g/dl (32.0-37.0); MEAN CORPUSCULAR VOLUME 93.1 fl (82.0-101.0); MEAN PLATELET VOLUME 11.1 fl (7.4-10.4); MONOCYTE # 0.6 10^3/ul (0.3-0.9); MONOCYTES % 8.4 % (0.0-11.0); NEUTROPHIL # 3.1 10^3/ul (1.6-7.5); NEUTROPHILS % 46.4 % (39.0-77.0); PLATELET COUNT 162 10^3/UL (140-415); RED BLOOD COUNT 4.23 10^6/ul (4.70-6.10); RED CELL DISTRIBUTION WIDTH 12.4 % (11.5-14.5)
[2018-04-20 19:47] LABS: WHITE BLOOD COUNT 6.7 10^3/ul (4.8-10.8)
[2018-04-20 20:11] LABS: ANION GAP 14 (5-13); BLOOD UREA NITROGEN 13 mg/dl (7-20); CALCIUM 9.9 mg/dl (8.4-10.2); CARBON DIOXIDE 22 mmol/L (21-31); CHLORIDE 104 mmol/L (97-110); CREATININE 1.06 mg/dl (0.61-1.24); Estimated GFR > 60 mL/min (>60); GLUCOSE 131 mg/dl (70-220); SODIUM 140 mmol/L (135-144)
[2018-04-20 20:22] LABS: TROPONIN-I < 0.012 ng/ml (0.000-0.120)
== END 2018-04-20 20:56 | disposition home or self-care (01) ==
LOC: E/R 20:56
DX: R07.9 Chest pain, unspecified (principal); R40.2252 Coma scale, best verbal response, oriented, at arrival to emergency department; R40.2142 Coma scale, eyes open, spontaneous, at arrival to emergency department; R40.2362 Coma scale, best motor response, obeys commands, at arrival to emergency department; I10 Essential (primary) hypertension; Z79.82 Long term (current) use of aspirin; Z87.891 Personal history of nicotine dependence
CPT/HCPCS: 36415; 71045; 80048; 84484; 85025; 93005; 99285-25

== ENCOUNTER 2018-05-05 07:53 | Emergency (ER) | payer MEDICARE, OTHER ==
[2018-05-05] MEDS: LORAZEPAM 0.5 MG TAB PO (08:21)
== END 2018-05-05 09:07 | disposition home or self-care (01) ==
LOC: E/R 07:53
DX: R25.1 Tremor, unspecified (principal); G20 Parkinson's disease; I10 Essential (primary) hypertension; F17.210 Nicotine dependence, cigarettes, uncomplicated; Z79.82 Long term (current) use of aspirin
CPT/HCPCS: 99283

== ENCOUNTER 2018-05-09 21:08 | Observation (INO) | payer MEDICARE, OTHER ==
[2018-05-09 22:21] LABS: ADD MAN DIFF? NO
[2018-05-09 22:22] LABS: WHITE BLOOD COUNT 7.3 10^3/ul (4.8-10.8)
[2018-05-09 22:22] LABS: BASOPHILS % 0.5 % (0.0-2.0); EOSINOPHILS # 0.3 10^3/ul (0.0-0.5); EOSINOPHILS % 3.4 % (0.0-7.0); HEMOGLOBIN 13.3 g/dl (14.0-18.0); LYMPHOCYTES # 3.3 10^3/ul (0.8-2.9); LYMPHOCYTES % 45.9 % (15.0-51.0); MEAN CORPUSCULAR HEMOGLOBIN 31.1 pg (29.0-33.0); MEAN CORPUSCULAR HGB CONC 33.3 g/dl (32.0-37.0); MEAN CORPUSCULAR VOLUME 93.7 fl (82.0-101.0); MEAN PLATELET VOLUME 11.4 fl (7.4-10.4); MONOCYTE # 0.6 10^3/ul (0.3-0.9); MONOCYTES % 8.7 % (0.0-11.0); NEUTROPHILS % 41.4 % (39.0-77.0); PLATELET COUNT 186 10^3/UL (140-415); RED BLOOD COUNT 4.27 10^6/ul (4.70-6.10); RED CELL DISTRIBUTION WIDTH 12.3 % (11.5-14.5)
[2018-05-09 22:28] LABS: ALANINE AMINOTRANSFERASE 25 IU/L (13-69); ALBUMIN 4.5 g/dl (3.3-4.9); ALBUMIN/GLOBULIN RATIO 1.95; ALKALINE PHOSPHATASE 53 IU/L (42-121); ANION GAP 11 (5-13); ASPARTATE AMINO TRANSFERASE 42 IU/L (15-46); BILIRUBIN,INDIRECT 0.1 mg/dl (0-1.1); BILIRUBIN,TOTAL 0.1 mg/dl (0.2-1.3); BLOOD UREA NITROGEN 14 mg/dl (7-20); CALCIUM 9.6 mg/dl (8.4-10.2); CARBON DIOXIDE 25 mmol/L (21-31); CHLORIDE 105 mmol/L (97-110); CREATININE 0.93 mg/dl (0.61-1.24); GLUCOSE 154 mg/dl (70-220); POTASSIUM 4.4 mmol/L (3.5-5.1); SODIUM 141 mmol/L (135-144); TOTAL PROTEIN 6.8 g/dl (6.1-8.1)
[2018-05-09 22:39] LABS: TROPONIN-I < 0.012 ng/ml (0.000-0.120)
[2018-05-09] MEDS: NITROGLYCERIN 2% 1 GM OINT PKT TD (23:40)
[2018-05-10] MEDS ORDERED: HYDROCODONE/APAP (5/325) TAB PO (00:30)
[2018-05-10] MEDS ORDERED: ZOLPIDEM 5 MG TAB PO (00:30)
[2018-05-10] MEDS ORDERED: NACL 0.9% 3 ML SYG IV (00:30)
[2018-05-10] MEDS ORDERED: hydrALAzine 20 MG INJ IV (00:30)
[2018-05-10] MEDS ORDERED: morphine 2 MG INJ IV (00:30)
[2018-05-10] MEDS ORDERED: ACETAMINOPHEN 325 MG TAB PO ×2 (00:30)
[2018-05-10] MEDS ORDERED: ONDANSETRON 4 MG INJ IV ×2 (00:30)
[2018-05-10] MEDS ORDERED: MAGNESIUM HYDROXIDE 30ML CUP PO (00:30)
[2018-05-10] MEDS ORDERED: DOCUSATE SODIUM 100 MG CAP PO (00:30)
[2018-05-10] MEDS ORDERED: NITROGLYCERIN (SL) 0.4 MG TAB SL (00:30)
[2018-05-10] MEDS ORDERED: LORAZEPAM 0.5 MG TAB PO (00:30)
[2018-05-10 03:38] LABS: CREATINE KINASE 543 IU/L (23-200)
[2018-05-10 03:52] LABS: CK INDEX 1.2; CK-MB 6.64 ng/ml (0.0-2.4); TROPONIN-I < 0.012 ng/ml (0.000-0.120)
[2018-05-10] MEDS: PANTOPRAZOLE (EC) 40 MG TAB PO (05:48)
[2018-05-10] MEDS: DIPHENHYDRAMINE 25 MG CAP PO ×3 (05:48→18:30)
[2018-05-10 06:18] LABS: RETICULOCYTE COUNT # 0.073 X10^6 (0.020-0.110); RETICULOCYTE COUNT % 1.7 % (0.5-1.5)
[2018-05-10 06:18] LABS: RETICULOCYTE RBC 4.26
[2018-05-10 06:58] LABS: IRON 69 ug/dl (35-150)
[2018-05-10 07:01] LABS: CREATINE KINASE 457 IU/L (23-200)
[2018-05-10 07:03] LABS: CHOL/HDL RATIO 3.6 RATIO; HDL CHOLESTEROL 33 mg/dl (31-75); LDL CHOLESTEROL,CALCULATED 64 mg/dl; TRIGLYCERIDES 123 mg/dl (0-149)
[2018-05-10 07:03] LABS: CHOLESTEROL 122 mg/dl (100-200)
[2018-05-10 07:06] LABS: HEMOGLOBIN A1C 5.8 % (0-5.9)
[2018-05-10 07:07] LABS: % IRON SATURATION 20 % SAT (22-52); TOTAL IRON BINDING CAPACITY 348 ug/dl (241-421)
[2018-05-10] MEDS: SOD CHLORIDE 0.9% 1,000 ML IV (07:12)
[2018-05-10 07:15] LABS: CK INDEX 1.2; CK-MB 5.44 ng/ml (0.0-2.4); TROPONIN-I < 0.012 ng/ml (0.000-0.120)
[2018-05-10 08:10] LABS: FOLATE 11.9 ng/ml (2.8-20.0)
[2018-05-10] MEDS: CARBIDOPA/LEVODOPA (25/100) TAB PO ×3 (08:11→20:15)
[2018-05-10] MEDS: ASPIRIN (EC) 81 MG TAB PO (08:11)
[2018-05-10] MEDS: METOPROLOL 25 MG TAB PO ×2 (08:11→20:14)
[2018-05-10] MEDS: AMLODIPINE 5 MG TAB PO (08:12)
[2018-05-10] MEDS: LOSARTAN 50 MG TAB PO (08:12)
[2018-05-10] MEDS: ENOXAPARIN 40 MG/0.4 ML SYG SC (08:13)
[2018-05-10] MEDS: OLANZAPINE 5 MG TAB PO ×2 (08:18→20:15)
[2018-05-10] MEDS: DIVALPROEX (EC) 500 MG TAB PO ×2 (09:00→20:14)
[2018-05-10] MEDS: PRAMIPEXOLE 0.25 MG TAB PO ×3 (09:00→20:19)
[2018-05-10 17:49] LABS: CARCINOEMBRYONIC ANTIGEN 4.3 ng/ml (0.0-5.0)
[2018-05-10] MEDS: ATORVASTATIN 20 MG TAB PO (20:14)
[2018-05-10] MEDS: MIRTAZAPINE 15 MG TAB PO (20:15)
[2018-05-11] MEDS: DIPHENHYDRAMINE 25 MG CAP PO ×3 (00:30→12:15)
[2018-05-11] MEDS: PANTOPRAZOLE (EC) 40 MG TAB PO (05:37)
[2018-05-11] MEDS: ASPIRIN (EC) 81 MG TAB PO (08:24)
[2018-05-11] MEDS: DIVALPROEX (EC) 500 MG TAB PO (08:24)
[2018-05-11] MEDS: CARBIDOPA/LEVODOPA (25/100) TAB PO ×2 (08:24→12:15)
[2018-05-11] MEDS: LOSARTAN 50 MG TAB PO (08:25)
[2018-05-11] MEDS: METOPROLOL 25 MG TAB PO (08:25)
[2018-05-11] MEDS: PRAMIPEXOLE 0.25 MG TAB PO ×2 (08:25→12:15)
[2018-05-11] MEDS: AMLODIPINE 5 MG TAB PO ×2 (08:25→18:11)
[2018-05-11] MEDS: ENOXAPARIN 40 MG/0.4 ML SYG SC (09:58)
[2018-05-11] MEDS: OLANZAPINE 5 MG TAB PO (10:56)
== END 2018-05-11 18:15 | disposition home or self-care (01) ==
LOC: E/R 21:08 → TEL 05-10 00:06
DX: R07.9 Chest pain, unspecified (principal); J44.9 Chronic obstructive pulmonary disease, unspecified; I11.0 Hypertensive heart disease with heart failure; I50.9 Heart failure, unspecified; M19.90 Unspecified osteoarthritis, unspecified site; F17.200 Nicotine dependence, unspecified, uncomplicated; Z79.82 Long term (current) use of aspirin; F31.9 Bipolar disorder, unspecified; E78.5 Hyperlipidemia, unspecified; G20 Parkinson's disease; N40.0 Benign prostatic hyperplasia without lower urinary tract symptoms
CPT/HCPCS: 71045; 80053; 80061; 82378; 82550; 82553; 82607; 82746; 83036; 83540; 84443; 84484; 85025; 85045; 93005; 93306; 99285-25; G0378

== ENCOUNTER 2018-05-15 20:53 | Emergency (ER) | payer MEDICARE, OTHER ==
[2018-05-15 21:06] LABS: ADD MAN DIFF? NO
[2018-05-15 21:08] LABS: WHITE BLOOD COUNT 6.8 10^3/ul (4.8-10.8)
[2018-05-15 21:08] LABS: BASOPHILS % 0.4 % (0.0-2.0); EOSINOPHILS # 0.3 10^3/ul (0.0-0.5); EOSINOPHILS % 4.1 % (0.0-7.0); HEMATOCRIT 40.9 % (42.0-52.0); HEMOGLOBIN 13.6 g/dl (14.0-18.0); LYMPHOCYTES % 44.2 % (15.0-51.0); MEAN CORPUSCULAR HEMOGLOBIN 31.1 pg (29.0-33.0); MEAN CORPUSCULAR HGB CONC 33.3 g/dl (32.0-37.0); MEAN CORPUSCULAR VOLUME 93.6 fl (82.0-101.0); MEAN PLATELET VOLUME 10.5 fl (7.4-10.4); MONOCYTE # 0.7 10^3/ul (0.3-0.9); MONOCYTES % 9.5 % (0.0-11.0); NEUTROPHIL # 2.8 10^3/ul (1.6-7.5); NEUTROPHILS % 41.7 % (39.0-77.0); PLATELET COUNT 190 10^3/UL (140-415); RED BLOOD COUNT 4.37 10^6/ul (4.70-6.10); RED CELL DISTRIBUTION WIDTH 12.1 % (11.5-14.5)
[2018-05-15 21:31] LABS: ALANINE AMINOTRANSFERASE 24 IU/L (13-69); ALBUMIN 5.1 g/dl (3.3-4.9); ALBUMIN/GLOBULIN RATIO 2.68; ALKALINE PHOSPHATASE 62 IU/L (42-121); ANION GAP 15 (5-13); ASPARTATE AMINO TRANSFERASE 45 IU/L (15-46); BILIRUBIN,INDIRECT 0.2 mg/dl (0-1.1); BILIRUBIN,TOTAL 0.2 mg/dl (0.2-1.3); BLOOD UREA NITROGEN 11 mg/dl (7-20); CALCIUM 9.6 mg/dl (8.4-10.2); CARBON DIOXIDE 23 mmol/L (21-31); CHLORIDE 103 mmol/L (97-110); CREATININE 0.93 mg/dl (0.61-1.24); GLUCOSE 121 mg/dl (70-220); POTASSIUM 4.1 mmol/L (3.5-5.1); SODIUM 141 mmol/L (135-144)
[2018-05-15 21:43] LABS: B-TYPE NATRIURETIC PEPTIDE 67 PG/ML (0-125); TROPONIN-I < 0.012 ng/ml (0.000-0.120)
[2018-05-15 21:51] LABS: INR 0.84; PROTIME 11.6 Sec (11.9-14.9); PT RATIO 0.9
== END 2018-05-16 00:41 | disposition home or self-care (01) ==
LOC: E/R 05-16 00:41
DX: R07.89 Other chest pain (principal); R40.2142 Coma scale, eyes open, spontaneous, at arrival to emergency department; R40.2362 Coma scale, best motor response, obeys commands, at arrival to emergency department; R40.2252 Coma scale, best verbal response, oriented, at arrival to emergency department; J44.9 Chronic obstructive pulmonary disease, unspecified; I11.0 Hypertensive heart disease with heart failure; I50.9 Heart failure, unspecified; I25.10 Atherosclerotic heart disease of native coronary artery without angina pectoris; Z79.82 Long term (current) use of aspirin
CPT/HCPCS: 36415; 71045; 80053; 83880; 84484; 85025; 85610; 99285-25

== ENCOUNTER 2018-05-19 09:32 | Inpatient (IN) | payer MEDICARE, OTHER ==
[2018-05-19 10:21] LABS: ADD MAN DIFF? NO
[2018-05-19] MEDS: ALBUTEROL 0.5% (NEB) 2.5 MG/0.5 ML AMP NEB (10:32)
[2018-05-19] MEDS: IPRATROPIUM (NEB) 0.5 MG/2.5 ML AMP NEB (10:32)
[2018-05-19 10:34] LABS: BASOPHILS % 0.5 % (0.0-2.0); EOSINOPHILS # 0.1 10^3/ul (0.0-0.5); HEMATOCRIT 39.7 % (42.0-52.0); HEMOGLOBIN 13.3 g/dl (14.0-18.0); LYMPHOCYTES # 2.8 10^3/ul (0.8-2.9); LYMPHOCYTES % 46.8 % (15.0-51.0); MEAN CORPUSCULAR HEMOGLOBIN 31.4 pg (29.0-33.0); MEAN CORPUSCULAR HGB CONC 33.5 g/dl (32.0-37.0); MEAN CORPUSCULAR VOLUME 93.6 fl (82.0-101.0); MEAN PLATELET VOLUME 11.4 fl (7.4-10.4); MONOCYTE # 0.4 10^3/ul (0.3-0.9); MONOCYTES % 6.3 % (0.0-11.0); NEUTROPHIL # 2.7 10^3/ul (1.6-7.5); NEUTROPHILS % 44.2 % (39.0-77.0); PLATELET COUNT 184 10^3/UL (140-415); RED BLOOD COUNT 4.24 10^6/ul (4.70-6.10); RED CELL DISTRIBUTION WIDTH 12.6 % (11.5-14.5)
[2018-05-19] MEDS: METHYLPREDNISOLONE 125 MG INJ IV (10:37)
[2018-05-19] MEDS: SOD CHLORIDE 0.9% 1,000 ML IV ×2 (10:38→12:34)
[2018-05-19 10:55] LABS: ALANINE AMINOTRANSFERASE 25 IU/L (13-69); ALBUMIN 4.3 g/dl (3.3-4.9); ALBUMIN/GLOBULIN RATIO 1.79; ALKALINE PHOSPHATASE 52 IU/L (42-121); ANION GAP 13 (5-13); ASPARTATE AMINO TRANSFERASE 34 IU/L (15-46); BILIRUBIN,INDIRECT 0.3 mg/dl (0-1.1); BILIRUBIN,TOTAL 0.3 mg/dl (0.2-1.3); BLOOD UREA NITROGEN 16 mg/dl (7-20); CALCIUM 9.6 mg/dl (8.4-10.2); CARBON DIOXIDE 23 mmol/L (21-31); CHLORIDE 105 mmol/L (97-110); CREATINE KINASE 547 IU/L (23-200); CREATININE 0.95 mg/dl (0.61-1.24); GLUCOSE 155 mg/dl (70-220); POTASSIUM 4.2 mmol/L (3.5-5.1); SODIUM 141 mmol/L (135-144); TOTAL PROTEIN 6.7 g/dl (6.1-8.1)
[2018-05-19 10:57] LABS: INR 0.98; PROTIME 13.1 Sec (11.9-14.9)
[2018-05-19 11:08] LABS: CK INDEX 1.7; CK-MB 9.15 ng/ml (0.0-2.4); TROPONIN-I < 0.012 ng/ml (0.000-0.120)
[2018-05-19 11:13] LABS: FREE THYROXINE INDEX (Calc) 2.11 ug/ml (0.65-3.89); T4 (THYROXINE) 6.4 ug/dl (5.5-11.0)
[2018-05-19] MEDS: VANCOMYCIN 1 GM (PMX) 250 ML IVPB (11:19)
[2018-05-19 11:38] LABS: ADD UMIC NO; UR ASCORBIC ACID NEGATIVE (NEGATIVE); UR BILIRUBIN (Dip) NEGATIVE (NEGATIVE); UR BLOOD (Dip) NEGATIVE (NEGATIVE); UR CLARITY CLEAR (CLEAR); UR COLOR STRAW (YELLOW); UR GLUCOSE (Dip) NEGATIVE (NEGATIVE); UR KETONES (Dip) NEGATIVE (NEGATIVE); UR LEUKOCYTE ESTERASE (Dip) NEGATIVE Leu/ul (NEGATIVE); UR NITRITE (Dip) NEGATIVE (NEGATIVE); UR SPECIFIC GRAVITY (Dip) 1.005 (1.003-1.030); UR TOTAL PROTEIN (Dip) NEGATIVE (NEGATIVE); UR UROBILINOGEN (Dip) NEGATIVE (NEGATIVE)
[2018-05-19 12:33] LABS: B-TYPE NATRIURETIC PEPTIDE 48 PG/ML (0-125)
[2018-05-19 13:15] LABS: LACTIC ACID 2.2 mmol/L (0.5-2.0)
[2018-05-19] MEDS: CEFEPIME 2GM/50 ML (PMX) 50 ML IVPB (13:21)
[2018-05-19] MEDS ORDERED: ONDANSETRON 4 MG INJ IV ×2 (13:30→15:30)
[2018-05-19] MEDS ORDERED: ACETAMINOPHEN 325 MG TAB PO ×2 (13:30→15:30)
[2018-05-19] MEDS: ACETAMINOPHEN 325 MG TAB PO (13:51)
[2018-05-19] MEDS ORDERED: DOCUSATE SODIUM 100 MG CAP PO (15:30)
[2018-05-19] MEDS ORDERED: ALBUTEROL/IPRATROPIUM (NEB) 3 ML AMP HHN (15:30)
[2018-05-19] MEDS ORDERED: LORAZEPAM 0.5 MG TAB PO (15:30)
[2018-05-19] MEDS ORDERED: NACL 0.9% 3 ML SYG IV (15:30)
[2018-05-19] MEDS ORDERED: MAGNESIUM HYDROXIDE 30ML CUP PO (15:30)
[2018-05-19] MEDS ORDERED: HYDROCODONE/APAP (5/325) TAB PO (15:30)
[2018-05-19] MEDS: DIPHENHYDRAMINE 25 MG CAP PO ×2 (18:12→22:02)
[2018-05-19] MEDS: CEFEPIME 1GM/50 ML (PMX) 50 ML IVPB (20:35)
[2018-05-19] MEDS: MIRTAZAPINE 15 MG TAB PO (20:46)
[2018-05-19] MEDS: OLANZAPINE 5 MG TAB PO (20:46)
[2018-05-19] MEDS: DIVALPROEX (EC) 500 MG TAB PO (20:46)
[2018-05-19] MEDS: ATORVASTATIN 20 MG TAB PO (20:48)
[2018-05-19] MEDS: METOPROLOL 25 MG TAB PO (20:48)
[2018-05-19] MEDS: CARBIDOPA/LEVODOPA (25/100) TAB PO (22:01)
[2018-05-19] MEDS: PRAMIPEXOLE 0.25 MG TAB PO (22:07)
[2018-05-20] MEDS: DIPHENHYDRAMINE 25 MG CAP PO ×4 (03:13→21:34)
[2018-05-20 05:35] LABS: ADD MAN DIFF? NO
[2018-05-20 05:44] LABS: BASOPHILS % 0.2 % (0.0-2.0); HEMATOCRIT 41.7 % (42.0-52.0); HEMOGLOBIN 13.8 g/dl (14.0-18.0); LYMPHOCYTES # 1.5 10^3/ul (0.8-2.9); LYMPHOCYTES % 12.7 % (15.0-51.0); MEAN CORPUSCULAR HEMOGLOBIN 31.4 pg (29.0-33.0); MEAN CORPUSCULAR HGB CONC 33.1 g/dl (32.0-37.0); MEAN CORPUSCULAR VOLUME 94.8 fl (82.0-101.0); MEAN PLATELET VOLUME 10.9 fl (7.4-10.4); MONOCYTE # 0.8 10^3/ul (0.3-0.9); MONOCYTES % 6.6 % (0.0-11.0); NEUTROPHIL # 9.4 10^3/ul (1.6-7.5); NEUTROPHILS % 80.2 % (39.0-77.0); PLATELET COUNT 203 10^3/UL (140-415); RED CELL DISTRIBUTION WIDTH 12.7 % (11.5-14.5)
[2018-05-20 05:44] LABS: WHITE BLOOD COUNT 11.8 10^3/ul (4.8-10.8)
[2018-05-20] MEDS: PANTOPRAZOLE (EC) 40 MG TAB PO (05:44)
[2018-05-20 06:16] LABS: LACTIC ACID 2.1 mmol/L (0.5-2.0)
[2018-05-20 06:18] LABS: TROPONIN-I < 0.012 ng/ml (0.000-0.120)
[2018-05-20 06:21] LABS: ALANINE AMINOTRANSFERASE 25 IU/L (13-69); ALBUMIN 4.3 g/dl (3.3-4.9); ALBUMIN/GLOBULIN RATIO 1.79; ALKALINE PHOSPHATASE 50 IU/L (42-121); ANION GAP 11 (5-13); ASPARTATE AMINO TRANSFERASE 27 IU/L (15-46); BILIRUBIN,INDIRECT 0.3 mg/dl (0-1.1); BILIRUBIN,TOTAL 0.3 mg/dl (0.2-1.3); BLOOD UREA NITROGEN 21 mg/dl (7-20); CALCIUM 9.8 mg/dl (8.4-10.2); CARBON DIOXIDE 24 mmol/L (21-31); CHLORIDE 107 mmol/L (97-110); CREATININE 0.99 mg/dl (0.61-1.24); GLUCOSE 141 mg/dl (70-220); POTASSIUM 4.4 mmol/L (3.5-5.1); SODIUM 142 mmol/L (135-144); TOTAL PROTEIN 6.7 g/dl (6.1-8.1)
[2018-05-20 06:36] LABS: THYROID STIMULATING HORMONE 0.308 MIU/L (0.465-4.680)
[2018-05-20] MEDS: CEFEPIME 1GM/50 ML (PMX) 50 ML IVPB ×2 (09:38→21:33)
[2018-05-20] MEDS: LOSARTAN 50 MG TAB PO (09:40)
[2018-05-20] MEDS: OLANZAPINE 5 MG TAB PO ×2 (09:41→21:34)
[2018-05-20] MEDS: ISOSORBIDE MONONITRATE(SR)30 MG TAB PO (09:41)
[2018-05-20] MEDS: CARBIDOPA/LEVODOPA (25/100) TAB PO ×3 (09:41→21:34)
[2018-05-20] MEDS: ASPIRIN (EC) 81 MG TAB PO (09:41)
[2018-05-20] MEDS: PRAMIPEXOLE 0.25 MG TAB PO ×3 (09:42→21:34)
[2018-05-20] MEDS: AMLODIPINE 5 MG TAB PO (09:42)
[2018-05-20] MEDS: DIVALPROEX (EC) 500 MG TAB PO ×2 (09:42→21:34)
[2018-05-20] MEDS: METOPROLOL 25 MG TAB PO ×2 (09:42→21:00)
[2018-05-20] MEDS: INFLUENZA VIRUS VACCINE 0.5 ML (DISPENSING) IM* (10:00)
[2018-05-20] MEDS: ENOXAPARIN 40 MG/0.4 ML SYG SC (11:07)
[2018-05-20] MEDS: ATORVASTATIN 20 MG TAB PO (21:34)
[2018-05-20] MEDS: MIRTAZAPINE 15 MG TAB PO (21:34)
[2018-05-21] MEDS: DIPHENHYDRAMINE 25 MG CAP PO ×4 (03:30→20:47)
[2018-05-21 05:42] LABS: ADD MAN DIFF? NO
[2018-05-21 05:47] LABS: WHITE BLOOD COUNT 8.8 10^3/ul (4.8-10.8)
[2018-05-21 05:47] LABS: BASOPHILS % 0.5 % (0.0-2.0); EOSINOPHILS # 0.3 10^3/ul (0.0-0.5); EOSINOPHILS % 3.1 % (0.0-7.0); HEMATOCRIT 40.4 % (42.0-52.0); HEMOGLOBIN 13.3 g/dl (14.0-18.0); LYMPHOCYTES # 3.3 10^3/ul (0.8-2.9); LYMPHOCYTES % 37.7 % (15.0-51.0); MEAN CORPUSCULAR HEMOGLOBIN 31.3 pg (29.0-33.0); MEAN CORPUSCULAR HGB CONC 32.9 g/dl (32.0-37.0); MEAN CORPUSCULAR VOLUME 95.1 fl (82.0-101.0); MONOCYTE # 0.5 10^3/ul (0.3-0.9); MONOCYTES % 5.9 % (0.0-11.0); NEUTROPHIL # 4.6 10^3/ul (1.6-7.5); NEUTROPHILS % 52.5 % (39.0-77.0); PLATELET COUNT 188 10^3/UL (140-415); RED BLOOD COUNT 4.25 10^6/ul (4.70-6.10)
[2018-05-21 06:11] LABS: ANION GAP 11 (5-13); BLOOD UREA NITROGEN 24 mg/dl (7-20); CALCIUM 9.1 mg/dl (8.4-10.2); CARBON DIOXIDE 25 mmol/L (21-31); CHLORIDE 110 mmol/L (97-110); CREATININE 0.92 mg/dl (0.61-1.24); GLUCOSE 105 mg/dl (70-220); POTASSIUM 4.4 mmol/L (3.5-5.1); SODIUM 146 mmol/L (135-144)
[2018-05-21 06:26] LABS: PHOSPHORUS 3.4 mg/dl (2.5-4.9)
[2018-05-21 06:32] LABS: LACTIC ACID 1.5 mmol/L (0.5-2.0)
[2018-05-21] MEDS: morphine 2 MG INJ IV (06:53)
[2018-05-21] MEDS: PANTOPRAZOLE (EC) 40 MG TAB PO (06:53)
[2018-05-21] MEDS: OLANZAPINE 5 MG TAB PO ×2 (08:47→20:45)
[2018-05-21] MEDS: CEFEPIME 1GM/50 ML (PMX) 50 ML IVPB ×2 (08:47→20:45)
[2018-05-21] MEDS: ASPIRIN (EC) 81 MG TAB PO (08:48)
[2018-05-21] MEDS: LOSARTAN 50 MG TAB PO (08:48)
[2018-05-21] MEDS: PRAMIPEXOLE 0.25 MG TAB PO ×3 (08:48→20:46)
[2018-05-21] MEDS: ISOSORBIDE MONONITRATE(SR)30 MG TAB PO (08:48)
[2018-05-21] MEDS: DIVALPROEX (EC) 500 MG TAB PO ×2 (08:48→20:46)
[2018-05-21] MEDS: METOPROLOL 25 MG TAB PO ×2 (08:49→20:47)
[2018-05-21] MEDS: AMLODIPINE 5 MG TAB PO (08:49)
[2018-05-21] MEDS: CARBIDOPA/LEVODOPA (25/100) TAB PO ×3 (08:49→20:47)
[2018-05-21] MEDS: ENOXAPARIN 40 MG/0.4 ML SYG SC (08:59)
[2018-05-21] MEDS: MIRTAZAPINE 15 MG TAB PO (20:46)
[2018-05-21] MEDS: ATORVASTATIN 20 MG TAB PO (21:25)
[2018-05-22] MEDS: DIPHENHYDRAMINE 25 MG CAP PO ×3 (03:40→17:04)
[2018-05-22] MEDS: PANTOPRAZOLE (EC) 40 MG TAB PO (05:37)
[2018-05-22] MEDS: CEFEPIME 1GM/50 ML (PMX) 50 ML IVPB (09:24)
[2018-05-22] MEDS: METOPROLOL 25 MG TAB PO (09:24)
[2018-05-22] MEDS: DIVALPROEX (EC) 500 MG TAB PO (09:24)
[2018-05-22] MEDS: ASPIRIN (EC) 81 MG TAB PO (09:25)
[2018-05-22] MEDS: ISOSORBIDE MONONITRATE(SR)30 MG TAB PO (09:25)
[2018-05-22] MEDS: AMLODIPINE 5 MG TAB PO (09:25)
[2018-05-22] MEDS: PRAMIPEXOLE 0.25 MG TAB PO ×2 (09:25→12:40)
[2018-05-22] MEDS: OLANZAPINE 5 MG TAB PO (09:26)
[2018-05-22] MEDS: LOSARTAN 50 MG TAB PO (09:26)
[2018-05-22] MEDS: CARBIDOPA/LEVODOPA (25/100) TAB PO ×2 (09:26→12:40)
[2018-05-22] MEDS: ENOXAPARIN 40 MG/0.4 ML SYG SC (09:36)
== END 2018-05-22 18:16 | disposition home or self-care (01) | DRG 149 ==
LOC: E/R 09:32 → 6WM 13:19
DX: R42 Dizziness and giddiness (principal); J18.9 Pneumonia, unspecified organism; J44.1 Chronic obstructive pulmonary disease with (acute) exacerbation; E87.2 Acidosis; J44.0 Chronic obstructive pulmonary disease with (acute) lower respiratory infection; I65.22 Occlusion and stenosis of left carotid artery; J20.9 Acute bronchitis, unspecified; F31.9 Bipolar disorder, unspecified; I45.10 Unspecified right bundle-branch block; E86.0 Dehydration; G20 Parkinson's disease; R73.03 Prediabetes; D64.9 Anemia, unspecified; R07.89 Other chest pain; Z72.0 Tobacco use; I11.0 Hypertensive heart disease with heart failure; I50.9 Heart failure, unspecified
CPT/HCPCS: 70450; 71045; 80048; 80053; 81003; 82550; 82553; 83605; 83735; 83880; 84100; 84436; 84443; 84479; 84484; 85025; 85610; 85730; 87040; 87081; 90686; 93005; 93880; 94664; 96361; 96365; 96375; 97116; 97162; 97530; 99291-25; G0378

== ENCOUNTER 2018-06-02 17:55 | Emergency (ER) | payer MEDICARE, OTHER ==
[2018-06-02 18:13] LABS: ADD MAN DIFF? NO
[2018-06-02 18:15] LABS: BASOPHILS % 0.4 % (0.0-2.0); EOSINOPHILS # 0.2 10^3/ul (0.0-0.5); EOSINOPHILS % 2.3 % (0.0-7.0); HEMATOCRIT 39.9 % (42.0-52.0); HEMOGLOBIN 13.2 g/dl (14.0-18.0); LYMPHOCYTES # 2.9 10^3/ul (0.8-2.9); LYMPHOCYTES % 39.3 % (15.0-51.0); MEAN CORPUSCULAR HEMOGLOBIN 31.1 pg (29.0-33.0); MEAN CORPUSCULAR HGB CONC 33.1 g/dl (32.0-37.0); MEAN CORPUSCULAR VOLUME 94.1 fl (82.0-101.0); MONOCYTE # 0.6 10^3/ul (0.3-0.9); MONOCYTES % 8.7 % (0.0-11.0); NEUTROPHIL # 3.6 10^3/ul (1.6-7.5); NEUTROPHILS % 49.2 % (39.0-77.0); PLATELET COUNT 186 10^3/UL (140-415); RED BLOOD COUNT 4.24 10^6/ul (4.70-6.10); RED CELL DISTRIBUTION WIDTH 12.3 % (11.5-14.5)
[2018-06-02 18:15] LABS: WHITE BLOOD COUNT 7.4 10^3/ul (4.8-10.8)
[2018-06-02 18:36] LABS: ALANINE AMINOTRANSFERASE 7 IU/L (13-69); ALBUMIN 4.3 g/dl (3.3-4.9); ALBUMIN/GLOBULIN RATIO 1.59; ALKALINE PHOSPHATASE 55 IU/L (42-121); ANION GAP 14 (5-13); ASPARTATE AMINO TRANSFERASE 47 IU/L (15-46); BILIRUBIN,INDIRECT 0.4 mg/dl (0-1.1); BILIRUBIN,TOTAL 0.4 mg/dl (0.2-1.3); BLOOD UREA NITROGEN 13 mg/dl (7-20); CALCIUM 9.5 mg/dl (8.4-10.2); CARBON DIOXIDE 23 mmol/L (21-31); CHLORIDE 105 mmol/L (97-110); CREATININE 0.92 mg/dl (0.61-1.24); GLUCOSE 134 mg/dl (70-220); LIPASE 106 U/L (23-300); POTASSIUM 4.5 mmol/L (3.5-5.1); SODIUM 142 mmol/L (135-144)
[2018-06-02 18:46] LABS: TROPONIN-I < 0.012 ng/ml (0.000-0.120)
[2018-06-02 19:54] LABS: INR 0.84; PROTIME 11.6 Sec (11.9-14.9); PT RATIO 0.9
== END 2018-06-02 21:09 | disposition home or self-care (01) ==
LOC: E/R 17:55
DX: R07.9 Chest pain, unspecified (principal); I11.0 Hypertensive heart disease with heart failure; I50.9 Heart failure, unspecified; J44.9 Chronic obstructive pulmonary disease, unspecified; I25.10 Atherosclerotic heart disease of native coronary artery without angina pectoris; G20 Parkinson's disease; Z79.82 Long term (current) use of aspirin
CPT/HCPCS: 71045; 80053; 83690; 84484; 85025; 85610; 93005; 99285-25

== ENCOUNTER 2018-06-29 07:35 | Emergency (ER) | payer MEDICARE, OTHER ==
[2018-06-29 08:06] LABS: ADD MAN DIFF? NO
[2018-06-29] MEDS: ONDANSETRON (ODT) 4 MG TAB ODT (08:07)
[2018-06-29 08:10] LABS: WHITE BLOOD COUNT 7.4 10^3/ul (4.8-10.8)
[2018-06-29 08:10] LABS: BASOPHILS % 0.4 % (0.0-2.0); EOSINOPHILS # 0.1 10^3/ul (0.0-0.5); EOSINOPHILS % 0.8 % (0.0-7.0); HEMATOCRIT 40.4 % (42.0-52.0); HEMOGLOBIN 13.8 g/dl (14.0-18.0); LYMPHOCYTES # 1.5 10^3/ul (0.8-2.9); LYMPHOCYTES % 20.1 % (15.0-51.0); MEAN CORPUSCULAR HEMOGLOBIN 31.4 pg (29.0-33.0); MEAN CORPUSCULAR HGB CONC 34.2 g/dl (32.0-37.0); MONOCYTE # 0.7 10^3/ul (0.3-0.9); MONOCYTES % 9.5 % (0.0-11.0); NEUTROPHIL # 5.1 10^3/ul (1.6-7.5); NEUTROPHILS % 68.9 % (39.0-77.0); PLATELET COUNT 184 10^3/UL (140-415); RED BLOOD COUNT 4.39 10^6/ul (4.70-6.10); RED CELL DISTRIBUTION WIDTH 12.1 % (11.5-14.5)
[2018-06-29 08:38] LABS: ALANINE AMINOTRANSFERASE 17 IU/L (13-69); ALBUMIN 4.7 g/dl (3.3-4.9); ALBUMIN/GLOBULIN RATIO 1.51; ALKALINE PHOSPHATASE 66 IU/L (42-121); ANION GAP 12 (5-13); ASPARTATE AMINO TRANSFERASE 52 IU/L (15-46); BILIRUBIN,INDIRECT 0.4 mg/dl (0-1.1); BILIRUBIN,TOTAL 0.4 mg/dl (0.2-1.3); BLOOD UREA NITROGEN 11 mg/dl (7-20); CARBON DIOXIDE 25 mmol/L (21-31); CHLORIDE 103 mmol/L (97-110); CREATININE 0.82 mg/dl (0.61-1.24); GLUCOSE 154 mg/dl (70-220); LIPASE 53 U/L (23-300); POTASSIUM 4.1 mmol/L (3.5-5.1); SODIUM 140 mmol/L (135-144); TOTAL PROTEIN 7.8 g/dl (6.1-8.1)
[2018-06-29 08:50] LABS: TROPONIN-I < 0.012 ng/ml (0.000-0.120)
== END 2018-06-29 13:17 | disposition home or self-care (01) ==
LOC: E/R 07:35
DX: R07.9 Chest pain, unspecified (principal); R40.2142 Coma scale, eyes open, spontaneous, at arrival to emergency department; R40.2252 Coma scale, best verbal response, oriented, at arrival to emergency department; R40.2362 Coma scale, best motor response, obeys commands, at arrival to emergency department; I11.0 Hypertensive heart disease with heart failure; I50.9 Heart failure, unspecified; J44.9 Chronic obstructive pulmonary disease, unspecified; I25.10 Atherosclerotic heart disease of native coronary artery without angina pectoris; G20 Parkinson's disease; Z79.82 Long term (current) use of aspirin
CPT/HCPCS: 71045; 80053; 83690; 84484; 85025; 93005; 99285-25

== ENCOUNTER 2018-07-13 00:30 | Emergency (ER) | payer MEDICARE, OTHER ==
[2018-07-13] MEDS: ALPRAZOLAM 0.25 MG TAB PO (02:27)
== END 2018-07-13 02:48 | disposition home or self-care (01) ==
LOC: E/R 00:30
DX: F41.9 Anxiety disorder, unspecified (principal); I50.9 Heart failure, unspecified; J44.9 Chronic obstructive pulmonary disease, unspecified; I11.0 Hypertensive heart disease with heart failure; I25.10 Atherosclerotic heart disease of native coronary artery without angina pectoris; G20 Parkinson's disease; Z79.82 Long term (current) use of aspirin
CPT/HCPCS: 99283

== ENCOUNTER 2018-07-28 17:13 | Emergency (ER) | payer MEDICARE, OTHER ==
[2018-07-28 17:59] LABS: ADD MAN DIFF? NO
[2018-07-28 18:06] LABS: BASOPHILS % 0.3 % (0.0-2.0); EOSINOPHILS # 0.1 10^3/ul (0.0-0.5); HEMATOCRIT 39.6 % (42.0-52.0); HEMOGLOBIN 13.2 g/dl (14.0-18.0); LYMPHOCYTES # 2.3 10^3/ul (0.8-2.9); LYMPHOCYTES % 38.6 % (15.0-51.0); MEAN CORPUSCULAR HEMOGLOBIN 31.1 pg (29.0-33.0); MEAN CORPUSCULAR HGB CONC 33.3 g/dl (32.0-37.0); MEAN CORPUSCULAR VOLUME 93.2 fl (82.0-101.0); MEAN PLATELET VOLUME 11.1 fl (7.4-10.4); MONOCYTE # 0.6 10^3/ul (0.3-0.9); MONOCYTES % 10.1 % (0.0-11.0); NEUTROPHIL # 2.9 10^3/ul (1.6-7.5); NEUTROPHILS % 48.5 % (39.0-77.0); PLATELET COUNT 167 10^3/UL (140-415); RED BLOOD COUNT 4.25 10^6/ul (4.70-6.10); RED CELL DISTRIBUTION WIDTH 12.4 % (11.5-14.5)
[2018-07-28 18:22] LABS: ANION GAP 11 (5-13); BLOOD UREA NITROGEN 16 mg/dl (7-20); CALCIUM 9.7 mg/dl (8.4-10.2); CARBON DIOXIDE 23 mmol/L (21-31); CHLORIDE 103 mmol/L (97-110); CREATININE 0.95 mg/dl (0.61-1.24); GLUCOSE 115 mg/dl (70-220); SODIUM 137 mmol/L (135-144)
[2018-07-28 18:33] LABS: TROPONIN-I < 0.012 ng/ml (0.000-0.120)
== END 2018-07-28 19:22 | disposition home or self-care (01) ==
LOC: E/R 17:13
DX: R07.9 Chest pain, unspecified (principal); I11.0 Hypertensive heart disease with heart failure; I50.9 Heart failure, unspecified; J44.9 Chronic obstructive pulmonary disease, unspecified; I25.10 Atherosclerotic heart disease of native coronary artery without angina pectoris; G20 Parkinson's disease; Z79.82 Long term (current) use of aspirin
CPT/HCPCS: 71045; 80048; 84484; 85025; 93005; 99285-25

== ENCOUNTER 2018-08-08 16:23 | Emergency (ER) | payer MEDICARE, OTHER ==
[2018-08-08] MEDS: KETOROLAC 15 MG INJ IM (17:07)
== END 2018-08-08 18:53 | disposition home or self-care (01) ==
LOC: E/R 16:23
DX: M25.562 Pain in left knee (principal); M17.12 Unilateral primary osteoarthritis, left knee; M25.462 Effusion, left knee; I11.0 Hypertensive heart disease with heart failure; I50.9 Heart failure, unspecified; J44.9 Chronic obstructive pulmonary disease, unspecified; I25.10 Atherosclerotic heart disease of native coronary artery without angina pectoris; G20 Parkinson's disease; Z79.82 Long term (current) use of aspirin
CPT/HCPCS: 73510; 73550; 73562; 96372; 99284-25

== ENCOUNTER 2018-08-10 21:47 | Emergency (ER) | payer MEDICARE, OTHER ==
[2018-08-10] MEDS: IBUPROFEN 800 MG TAB PO (22:44)
== END 2018-08-10 23:32 | disposition home or self-care (01) ==
LOC: E/R 21:47
DX: M25.562 Pain in left knee (principal); I11.0 Hypertensive heart disease with heart failure; I50.9 Heart failure, unspecified; I25.10 Atherosclerotic heart disease of native coronary artery without angina pectoris; J44.9 Chronic obstructive pulmonary disease, unspecified; G20 Parkinson's disease; Z79.82 Long term (current) use of aspirin
CPT/HCPCS: 99282

== ENCOUNTER 2018-08-18 21:57 | Emergency (ER) | payer MEDICARE, OTHER ==
[2018-08-18 22:39] LABS: ADD MAN DIFF? NO
[2018-08-18 22:42] LABS: WHITE BLOOD COUNT 6.7 10^3/ul (4.8-10.8)
[2018-08-18 22:42] LABS: BASOPHILS % 0.4 % (0.0-2.0); EOSINOPHILS # 0.1 10^3/ul (0.0-0.5); EOSINOPHILS % 1.8 % (0.0-7.0); HEMATOCRIT 40.5 % (42.0-52.0); HEMOGLOBIN 13.6 g/dl (14.0-18.0); LYMPHOCYTES # 2.7 10^3/ul (0.8-2.9); LYMPHOCYTES % 39.7 % (15.0-51.0); MEAN CORPUSCULAR HEMOGLOBIN 31.3 pg (29.0-33.0); MEAN CORPUSCULAR HGB CONC 33.6 g/dl (32.0-37.0); MEAN CORPUSCULAR VOLUME 93.3 fl (82.0-101.0); MEAN PLATELET VOLUME 10.8 fl (7.4-10.4); MONOCYTE # 0.6 10^3/ul (0.3-0.9); MONOCYTES % 9.4 % (0.0-11.0); NEUTROPHIL # 3.3 10^3/ul (1.6-7.5); NEUTROPHILS % 48.4 % (39.0-77.0); PLATELET COUNT 185 10^3/UL (140-415); RED BLOOD COUNT 4.34 10^6/ul (4.70-6.10); RED CELL DISTRIBUTION WIDTH 12.1 % (11.5-14.5)
[2018-08-18] MEDS: KETOROLAC 15 MG INJ IV (22:42)
[2018-08-18 23:01] LABS: ALANINE AMINOTRANSFERASE 21 IU/L (13-69); ALBUMIN 4.5 g/dl (3.3-4.9); ALBUMIN/GLOBULIN RATIO 1.55; ALKALINE PHOSPHATASE 60 IU/L (42-121); ANION GAP 14 (5-13); ASPARTATE AMINO TRANSFERASE 32 IU/L (15-46); BILIRUBIN,INDIRECT 0.2 mg/dl (0-1.1); BILIRUBIN,TOTAL 0.2 mg/dl (0.2-1.3); BLOOD UREA NITROGEN 18 mg/dl (7-20); CARBON DIOXIDE 25 mmol/L (21-31); CHLORIDE 102 mmol/L (97-110); CREATININE 1.22 mg/dl (0.61-1.24); GLUCOSE 124 mg/dl (70-220); LIPASE 87 U/L (23-300); POTASSIUM 4.3 mmol/L (3.5-5.1); SODIUM 141 mmol/L (135-144); TOTAL PROTEIN 7.4 g/dl (6.1-8.1)
[2018-08-18 23:02] LABS: INR 0.89; PROTIME 12.1 Sec (11.9-14.9); PT RATIO 0.9
[2018-08-18 23:13] LABS: TROPONIN-I < 0.012 ng/ml (0.000-0.120)
== END 2018-08-19 01:25 | disposition home or self-care (01) ==
LOC: E/R 21:57
DX: R07.9 Chest pain, unspecified (principal); M25.562 Pain in left knee; M17.12 Unilateral primary osteoarthritis, left knee; R10.9 Unspecified abdominal pain; D64.9 Anemia, unspecified; G20 Parkinson's disease; J44.9 Chronic obstructive pulmonary disease, unspecified; I50.9 Heart failure, unspecified; I25.10 Atherosclerotic heart disease of native coronary artery without angina pectoris; I11.0 Hypertensive heart disease with heart failure; F17.210 Nicotine dependence, cigarettes, uncomplicated; Z79.82 Long term (current) use of aspirin
CPT/HCPCS: 36415; 71045; 80053; 83690; 84484; 85025; 85610; 93005; 96374; 99285-25

== ENCOUNTER 2018-09-27 00:43 | Emergency (ER) | payer MEDICARE, OTHER | END 2018-09-27 04:11 | disposition home or self-care (01) | LOC: FTE 00:43 | DX: R05 Cough (principal); R50.9 Fever, unspecified; I11.0 Hypertensive heart disease with heart failure; I50.9 Heart failure, unspecified; J44.9 Chronic obstructive pulmonary disease, unspecified; I25.10 Atherosclerotic heart disease of native coronary artery without angina pectoris; G20 Parkinson's disease; Z79.82 Long term (current) use of aspirin | CPT/HCPCS: 99283 ==

== ENCOUNTER 2018-12-29 23:26 | Emergency (ER) | payer MEDICARE, OTHER ==
[2018-12-30] LABS: ADD MAN DIFF? NO
[2018-12-30 00:01] LABS: BASOPHILS % 0.6 % (0.0-2.0); EOSINOPHILS # 0.2 10^3/ul (0.0-0.5); EOSINOPHILS % 2.4 % (0.0-7.0); HEMOGLOBIN 14.3 g/dl (14.0-18.0); LYMPHOCYTES # 2.7 10^3/ul (0.8-2.9); LYMPHOCYTES % 39.1 % (15.0-51.0); MEAN CORPUSCULAR HEMOGLOBIN 30.7 pg (29.0-33.0); MEAN CORPUSCULAR VOLUME 90.1 fl (82.0-101.0); MEAN PLATELET VOLUME 11.1 fl (7.4-10.4); MONOCYTE # 0.7 10^3/ul (0.3-0.9); MONOCYTES % 10.2 % (0.0-11.0); NEUTROPHIL # 3.3 10^3/ul (1.6-7.5); NEUTROPHILS % 47.4 % (39.0-77.0); PLATELET COUNT 177 10^3/UL (140-415); RED BLOOD COUNT 4.66 10^6/ul (4.70-6.10); RED CELL DISTRIBUTION WIDTH 12.4 % (11.5-14.5)
[2018-12-30 00:11] LABS: ALANINE AMINOTRANSFERASE 32 IU/L (13-69); ALBUMIN 4.7 g/dl (3.3-4.9); ALBUMIN/GLOBULIN RATIO 1.46; ALKALINE PHOSPHATASE 63 IU/L (42-121); ANION GAP 14 (5-13); ASPARTATE AMINO TRANSFERASE 48 IU/L (15-46); BILIRUBIN,INDIRECT 0.5 mg/dl (0-1.1); BILIRUBIN,TOTAL 0.5 mg/dl (0.2-1.3); BLOOD UREA NITROGEN 10 mg/dl (7-20); CALCIUM 9.7 mg/dl (8.4-10.2); CARBON DIOXIDE 22 mmol/L (21-31); CHLORIDE 102 mmol/L (97-110); CREATININE 0.89 mg/dl (0.61-1.24); GLUCOSE 144 mg/dl (70-220); LIPASE 101 U/L (23-300); POTASSIUM 4.5 mmol/L (3.5-5.1); SODIUM 138 mmol/L (135-144); TOTAL PROTEIN 7.9 g/dl (6.1-8.1)
[2018-12-30] MEDS: ONDANSETRON 4 MG INJ IV (00:13)
[2018-12-30] MEDS: morphine 4 MG/ML VIAL IV (00:14)
[2018-12-30] MEDS: SOD CHLORIDE 0.9% 500 ML IV (00:14)
[2018-12-30 01:42] LABS: ADD UMIC NO; UR ASCORBIC ACID NEGATIVE (NEGATIVE); UR BILIRUBIN (Dip) NEGATIVE (NEGATIVE); UR BLOOD (Dip) NEGATIVE (NEGATIVE); UR CLARITY CLEAR (CLEAR); UR COLOR STRAW (YELLOW); UR GLUCOSE (Dip) NEGATIVE (NEGATIVE); UR KETONES (Dip) NEGATIVE (NEGATIVE); UR LEUKOCYTE ESTERASE (Dip) NEGATIVE Leu/ul (NEGATIVE); UR NITRITE (Dip) NEGATIVE (NEGATIVE); UR SPECIFIC GRAVITY (Dip) 1.003 (1.003-1.030); UR TOTAL PROTEIN (Dip) NEGATIVE (NEGATIVE); UR UROBILINOGEN (Dip) NEGATIVE (NEGATIVE)
== END 2018-12-30 10:42 | disposition home or self-care (01) ==
LOC: E/R 23:26
DX: R10.9 Unspecified abdominal pain (principal); I11.0 Hypertensive heart disease with heart failure; I50.9 Heart failure, unspecified; G20 Parkinson's disease; I25.10 Atherosclerotic heart disease of native coronary artery without angina pectoris; Z79.82 Long term (current) use of aspirin
CPT/HCPCS: 36415; 71045; 74176; 80053; 81003; 83690; 85025; 96374; 96375; 99285-25

== ENCOUNTER 2019-03-11 11:49 | Emergency (ER) | payer MEDICARE, OTHER ==
[2019-03-11] MEDS: SOD CHLORIDE 0.9% 1,000 ML IV (12:19)
[2019-03-11] MEDS: ONDANSETRON 4 MG INJ IV (12:19)
[2019-03-11 12:21] LABS: ADD MAN DIFF? NO
[2019-03-11 12:35] LABS: BASOPHILS % 0.5 % (0.0-2.0); EOSINOPHILS # 0.1 10^3/ul (0.0-0.5); HEMATOCRIT 44.4 % (42.0-52.0); HEMOGLOBIN 14.6 g/dl (14.0-18.0); LYMPHOCYTES # 1.9 10^3/ul (0.8-2.9); LYMPHOCYTES % 32.2 % (15.0-51.0); MEAN CORPUSCULAR HEMOGLOBIN 31.3 pg (29.0-33.0); MEAN CORPUSCULAR HGB CONC 32.9 g/dl (32.0-37.0); MEAN CORPUSCULAR VOLUME 95.3 fl (82.0-101.0); MEAN PLATELET VOLUME 10.9 fl (7.4-10.4); MONOCYTE # 0.6 10^3/ul (0.3-0.9); MONOCYTES % 10.1 % (0.0-11.0); NEUTROPHIL # 3.4 10^3/ul (1.6-7.5); PLATELET COUNT 171 10^3/UL (140-415); RED BLOOD COUNT 4.66 10^6/ul (4.70-6.10); RED CELL DISTRIBUTION WIDTH 12.5 % (11.5-14.5)
[2019-03-11 13:01] LABS: ALANINE AMINOTRANSFERASE 14 IU/L (13-69); ALBUMIN 4.3 g/dl (3.3-4.9); ALBUMIN/GLOBULIN RATIO 1.43; ALKALINE PHOSPHATASE 55 IU/L (42-121); ANION GAP 9 (5-13); ASPARTATE AMINO TRANSFERASE 35 IU/L (15-46); BILIRUBIN,INDIRECT 0.5 mg/dl (0-1.1); BILIRUBIN,TOTAL 0.5 mg/dl (0.2-1.3); BLOOD UREA NITROGEN 11 mg/dl (7-20); CALCIUM 9.6 mg/dl (8.4-10.2); CARBON DIOXIDE 23 mmol/L (21-31); CHLORIDE 107 mmol/L (97-110); CREATININE 0.85 mg/dl (0.61-1.24); GLUCOSE 106 mg/dl (70-220); LIPASE 60 U/L (23-300); POTASSIUM 4.3 mmol/L (3.5-5.1); SODIUM 139 mmol/L (135-144); TOTAL PROTEIN 7.3 g/dl (6.1-8.1)
[2019-03-11 13:11] LABS: TROPONIN-I < 0.012 ng/ml (0.000-0.120)
== END 2019-03-11 14:40 | disposition home or self-care (01) ==
LOC: E/R 11:49
DX: K59.00 Constipation, unspecified (principal); I11.0 Hypertensive heart disease with heart failure; I50.9 Heart failure, unspecified; I25.10 Atherosclerotic heart disease of native coronary artery without angina pectoris; G20 Parkinson's disease; J44.9 Chronic obstructive pulmonary disease, unspecified; R40.2362 Coma scale, best motor response, obeys commands, at arrival to emergency department; R40.2142 Coma scale, eyes open, spontaneous, at arrival to emergency department; R40.2252 Coma scale, best verbal response, oriented, at arrival to emergency department; Z79.82 Long term (current) use of aspirin
CPT/HCPCS: 36415; 74176; 80053; 83690; 84484; 85025; 93005; 96374; 99285-25